=== PATIENT | male | born 1980 | race Caucasian/White ===

== ENCOUNTER → 2019-03-02 | Outpatient (CLI) | payer OTHER ==
[2019-03-02 15:41] LABS: Anisocytosis Slight; Basophils # (A) 0.1 k/uL (0-0.2); Basophils % (A) 0 %; Eosinophils # (A) 0.1 k/uL (0-0.7); Eosinophils % (A) 1 %; HCT 38.4 % (39.0-53.0); HGB 11.1 gm/dL (13.0-17.5); Hypochromasia Marked; Lymphocytes # (A) 2.2 k/uL (1.0-4.8); Lymphocytes % (A) 18 %; MCH 21.5 pg (25.0-35.0); MCHC 28.9 g/dL (31.0-37.0); MCV 74.6 fL (80.0-100.0); Mean Platelet Volume 7.3; Microcytosis Moderate; Monocytes # (A) 0.6 k/uL (0-1.0); Monocytes % (A) 5 %; Neutrophils # (A) 8.9 k/uL (1.3-7.7); Neutrophils % (A) 74 %; Platelet Count 278 k/uL (150-450); RBC 5.15 m/uL (4.30-5.90); RDW 17.4 % (11.5-15.5)
[2019-03-02 23:14] LABS: T4, Free (Free Thyroxine) 1.2 ng/dL (0.80-1.80)
[2019-03-02 23:17] LABS: Albumin 4.1 g/dL (3.80-4.90); Albumin/Globulin Ratio 1.71 (1.60-3.17); Anion Gap 8.4 mmol/L (4.00-12.00); Calcium 8.6 mg/dL (8.7-10.3); Carbon Dioxide 36.6 mmol/L (21.6-31.8); Globulin 2.4 g/dL (1.6-3.3); Potassium 3.7 mmol/L (3.5-5.5); Total Bilirubin 0.2 mg/dL (0.2-1.2); Total Protein 6.5 g/dL (6.2-8.2)
[2019-03-03 00:28] LABS: Hemoglobin A1C 6.3 % (4.0-6.0)
== END | disposition home or self-care (01) ==
LOC: LABWHC1 14:54
PROVIDERS: ATTEND Physician Assistant
DX: Z00.00 Encounter for general adult medical examination without abnormal findings (principal); I10 Essential (primary) hypertension; D50.9 Iron deficiency anemia, unspecified; G47.30 Sleep apnea, unspecified
CPT/HCPCS: 36415; 80053; 83036; 84439; 84443; 84481; 85025

== ENCOUNTER 2019-06-18 14:12 | Emergency (ER) | payer MEDICARE, OTHER ==
[2019-06-18 14:19] VITALS: BP 158/51; PULSE 90; RESP 18; TEMP 98.5
[2019-06-18 15:10] LABS: African American GFR (CKD) >90 (>60 ml/min/1.73 sqM); Blood Urea Nitrogen 16 mg/dL (9-20); Calcium 8.6 mg/dL (8.4-10.2); Carbon Dioxide 39 mmol/L (22-30); Chloride 97 mmol/L (98-107); Glucose 125 mg/dL (74-99)
[2019-06-18 15:11] LABS: Anion Gap 4 mmol/L; Sodium 140 mmol/L (137-145)
[2019-06-18 15:21] LABS: Anisocytosis Slight; Basophils % (A) 0 %; Eosinophils # (A) 0.1 k/uL (0-0.7); Eosinophils % (A) 1 %; HCT 41.5 % (39.0-53.0); Hypochromasia Marked; Lymphocytes # (A) 1.4 k/uL (1.0-4.8); Lymphocytes % (A) 17 %; MCH 22.4 pg (25.0-35.0); MCHC 28.9 g/dL (31.0-37.0); MCV 77.6 fL (80.0-100.0); Mean Platelet Volume 8.4; Microcytosis Slight; Monocytes # (A) 0.4 k/uL (0-1.0); Monocytes % (A) 5 %; Neutrophils % (A) 74 %; Platelet Count 230 k/uL (150-450); Poikilocytosis Slight; RBC 5.35 m/uL (4.30-5.90); RDW 17.4 % (11.5-15.5); WBC 8.2 k/uL (3.8-10.6)
--- NOTE | 2019-06-18 15:32 | ED ---
Skin/Abscess/FB HPI - General Chief complaint: Skin/Abscess/Foreign Body Stated complaint: Cellulitis Time Seen by Provider: 06/18/19 14:22 Source: patient, RN notes reviewed Mode of arrival: ambulatory Limitations: no limitations - History of Present Illness Initial comments: 39-year-old male presents emergency department tingling of lower leg swelling and redness. Patient states that he had reoccurrence flank as he has chronic lymphedema of his lower extremity is. Patient denies any fevers chills he states he just noticed some redness no increase in pain paresthesias. Patient states that he just wants to Infection for gets worse if this is what is going on. Patient denies any trauma no history DVTs. - Related Data Home Medications Medication Instructions Recorded Confirmed Aspirin EC [Ecotrin Low Dose] 81 mg PO DAILY 06/18/19 06/18/19 Furosemide [Lasix] 40 mg PO TID 06/18/19 06/18/19 Spironolactone [Aldactone] 25 mg PO DAILY 06/18/19 06/18/19 Previous Rx's Medication Instructions Recorded Cephalexin [Keflex] 500 mg PO Q6HR #40 cap 06/18/19 Potassium Chloride ER [K-Dur 20] 20 meq PO DAILY #14 tab 06/18/19 Allergies Allergy/AdvReac Type Severity Reaction Status Date / Time phenobarbital Allergy Unknown Verified 06/18/19 14:50 Review of Systems ROS Statement: Those systems with pertinent positive or pertinent negative responses have been documented in the HPI. ROS Other: All systems not noted in ROS Statement are negative. Past Medical History Past Medical History: No Reported History History of Any Multi-Drug Resistant Organisms: None Reported Past Surgical History: No Surgical Hx Reported Past Psychological History: No Psychological Hx Reported Smoking Status: Former smoker Past Alcohol Use History: None Reported Past Drug Use History: Marijuana General Exam Limitations: no limitations General appearance: alert, in no apparent distress Head exam: Present: atraumatic, normocephalic, normal inspection Eye exam: Present: normal appearance, PERRL, EOMI. Absent: scleral icterus, conjunctival injection, periorbital swelling Respiratory exam: Present: normal lung sounds bilaterally. Absent: respiratory distress, wheezes, rales, rhonchi, stridor Cardiovascular Exam: Present: regular rate, normal rhythm, normal heart sounds. Absent: systolic murmur, diastolic murmur, rubs, gallop, clicks Extremities exam: Present: other (Bilateral lower extremity chronic venous stasis changes, scaling of the skin along with erythema there is mild increase in warmth pedal pulses equal bilaterally) Skin exam: Present: warm, dry Course Vital Signs 06/18/19 14:15 Temperature 98.5 F Pulse Rate 90 Respiratory 18 Rate Blood Pressure 158/51 O2 Sat by Pulse 94 L Oximetry Medical Decision Making - Medical Decision Making 39-year-old male presented for leg redness. Patient we treated for cellulitis. Labs unremarkable patient was concerned about his potassium is takes diuretics and ran out of his potassium. Patient will be discharged with antibiotics and potassium return parameters were discussed. - Lab Data Result diagrams: 06/18/19 14:53 06/18/19 14:53 Lab Results 06/18/19 06/18/19 Range/Units 14:53 14:53 WBC 8.2 (3.8-10.6) k/uL RBC 5.35 (4.30-5.90) m/uL Hgb 12.0 L (13.0-17.5) gm/dL Hct 41.5 (39.0-53.0) % MCV 77.6 L (80.0-100.0) fL MCH 22.4 L (25.0-35.0) pg MCHC 28.9 L (31.0-37.0) g/dL RDW 17.4 H (11.5-15.5) % Plt Count 230 (150-450) k/uL Neutrophils % 74 % Lymphocytes % 17 % Monocytes % 5 % Eosinophils % 1 % Basophils % 0 % Neutrophils # 6.0 (1.3-7.7) k/uL Lymphocytes # 1.4 (1.0-4.8) k/uL Monocytes # 0.4 (0-1.0) k/uL Eosinophils # 0.1 (0-0.7) k/uL Basophils # 0.0 (0-0.2) k/uL Hypochromasia Marked Poikilocytosis Slight Anisocytosis Slight Microcytosis Slight Sodium 140 (137-145) mmol/L Potassium 4.0 (3.5-5.1) mmol/L Chloride 97 L (98-107) mmol/L Carbon Dioxide 39 H (22-30) mmol/L Anion Gap 4 mmol/L BUN 16 (9-20) mg/dL Creatinine 0.67 (0.66-1.25) mg/dL Est GFR (CKD-EPI)AfAm >90 (>60 ml/min/1.73 sqM) Est GFR (CKD-EPI)NonAf >90 (>60 ml/min/1.73 sqM) Glucose 125 H (74-99) mg/dL Calcium 8.6 (8.4-10.2) mg/dL Disposition Clinical Impression: Cellulitis, leg Disposition: HOME SELF-CARE Condition: Stable Instructions (If sedation given, give patient instructions): Cellulitis (ED) Additional Instructions: Please return to the Emergency Department if symptoms worsen or any other concerns. Prescriptions: Potassium Chloride ER [K-Dur 20] 20 meq PO DAILY #14 tab Cephalexin [Keflex] 500 mg PO Q6HR #40 cap Is patient prescribed a controlled substance at d/c from ED?: No Referrals: Sia Huffman MD [Primary Care Provider] - 1-2 days Time of Disposition: 15:31
== END 2019-06-18 15:55 | disposition home or self-care (01) ==
LOC: EC 14:12
DX: L03.116 Cellulitis of left lower limb (principal); L03.115 Cellulitis of right lower limb; I89.0 Lymphedema, not elsewhere classified; Z79.82 Long term (current) use of aspirin; Z79.899 Other long term (current) drug therapy; Z88.8 Allergy status to other drugs, medicaments and biological substances; Z87.891 Personal history of nicotine dependence
CPT/HCPCS: 36415; 80048; 85025; 99283

== ENCOUNTER 2019-07-14 13:02 | Inpatient (IN) | payer MEDICARE ==
[2019-07-14] MEDS ORDERED: IPRATROPIUM-ALBUTEROL 3 ML NEB INHALATION STA (13:38)
[2019-07-14 13:57] LABS: Anisocytosis Slight; Basophils # (A) 0.1 k/uL (0-0.2); Basophils % (A) 1 %; Eosinophils # (A) 0.2 k/uL (0-0.7); Eosinophils % (A) 2 %; HCT 41.8 % (39.0-53.0); Hypochromasia Marked; Lymphocytes # (A) 1.6 k/uL (1.0-4.8); Lymphocytes % (A) 18 %; MCH 22.8 pg (25.0-35.0); MCHC 28.7 g/dL (31.0-37.0); MCV 79.5 fL (80.0-100.0); Mean Platelet Volume 7.3; Microcytosis Slight; Monocytes # (A) 0.5 k/uL (0-1.0); Monocytes % (A) 6 %; Neutrophils # (A) 6.8 k/uL (1.3-7.7); Neutrophils % (A) 72 %; Platelet Count 222 k/uL (150-450); RBC 5.25 m/uL (4.30-5.90); RDW 17.5 % (11.5-15.5); WBC 9.4 k/uL (3.8-10.6)
[2019-07-14 14:05] LABS: Partial Thromboplastin Time 22.3 sec (22.0-30.0)
[2019-07-14 14:08] LABS: ALT 22 U/L (21-72); AST 19 U/L (17-59); African American GFR (CKD) >90 (>60 ml/min/1.73 sqM); Albumin 3.5 g/dL (3.5-5.0); Alkaline Phosphatase 72 U/L (38-126); Anion Gap 4 mmol/L; Blood Urea Nitrogen 13 mg/dL (9-20); C Reactive Protein 10.3 mg/L (<10.0); Calcium 8.5 mg/dL (8.4-10.2); Carbon Dioxide 38 mmol/L (22-30); Chloride 99 mmol/L (98-107); Glucose 150 mg/dL (74-99); Non-African American GFR(CKD) >90 (>60 ml/min/1.73 sqM); Potassium 4.4 mmol/L (3.5-5.1); Sodium 141 mmol/L (137-145); Total Bilirubin 0.4 mg/dL (0.2-1.3); Total Protein 7.1 g/dL (6.3-8.2)
--- NOTE | 2019-07-14 14:33 | XR ---
EXAMINATION TYPE: XR chest 2V DATE OF EXAM: 07/14/2019 COMPARISON: 01/09/2016 HISTORY: 29-year-old male with difficulty breathing, shortness of breath TECHNIQUE: AP and lateral views FINDINGS: Heart mildly enlarged. Diffuse interstitial/vascular prominence. No consolidation or pleural effusion . IMPRESSION: Cardiomegaly and interstitial/vascular prominence. Correlate for possible mild CHF with pulmonary vas cular congestion. No kesha pulmonary edema.
--- NOTE | 2019-07-14 14:36 | XR ---
EXAMINATION TYPE: XR ankle complete 3 views LT, XR foot complete 3 views LT DATE OF EXAM: 07/14/2019 COMPARISON: NONE HISTORY: 39-year-old male with a foot and ankle pain and swelling FINDINGS: Left ankle: Marked generalized soft tissue swelling. Ankle mortise is congruent. No acute fracture, subluxation, dislocation. Talar dome is intact. Small delineation to the Achilles tendon. Small plantar calcaneal spur. Left foot: There is a transverse fracture just be the base of the fifth proximal phalanx with slight medial disp lacement and lateral angulation. Prominent soft tissue swelling may relate to patient body habitus. N o additional acute fracture seen. Ocampo's toe. IMPRESSION: 1. Left ankle: Generalized soft tissue swelling may in part relate to patient body habitus. No acute osseous abnormality seen. 2. Left foot: Transverse fracture just beyond the base of the fifth proximal phalanx with slight medi al displacement and lateral angulation. Soft tissue swelling of the foot may in part relate to large body habitus.
[2019-07-14 15:00] LABS: Erythrocyte Sedimentation Rate 13 mm/hr (0-15)
--- NOTE | 2019-07-14 16:01 | ED ---
SOB HPI - General Chief Complaint: Shortness of Breath Stated Complaint: Leg pain Time Seen by Provider: 07/14/19 13:23 Source: patient Mode of arrival: wheelchair Limitations: no limitations - History of Present Illness Initial Comments: The patient is a 39-year-old male who presents emergency Department with reported bilateral lower extremity cellulitis. The patient has a history of chronic venous insufficiency, diabetes and neuropathy. Patient reports that over the past several week he's had increased swelling to his bilateral lower extremities. He began having open weeping ulcers. States he's been previously hospitalized for this. He denies he fevers or chills. He does report that yesterday he accidentally tripped striking his left foot. Reports that he has pain in his left ankle. He has been able to ambulate. Denies a history of DVTs and PEs. The patient arrives and it is noted that he has a low pulse ox. He does admit to associated shortness of breath. The patient is diffusely wheezy upon presentation. Denies to me a history of congestive heart failure. Denies a history of COPD. States that he is unable to lay flat at night. Denies any chest pain. No ripping or tearing sensation to his back. Denies any abdominal pain or changes in bladder habits. There are no other alleviating, precipitating or modifying factors - Related Data Home Medications Medication Instructions Recorded Confirmed No Known Home Medications 07/14/19 07/14/19 Allergies Allergy/AdvReac Type Severity Reaction Status Date / Time phenobarbital Allergy Unknown Verified 07/14/19 14:46 Review of Systems ROS Statement: Those systems with pertinent positive or pertinent negative responses have been documented in the HPI. ROS Other: All systems not noted in ROS Statement are negative. Past Medical History Past Medical History: Diabetes Mellitus, Hyperlipidemia, Hypertension, Sleep Apnea/CPAP/BIPAP Additional Past Medical History / Comment(s): cellulitis History of Any Multi-Drug Resistant Organisms: None Reported Past Surgical History: No Surgical Hx Reported Past Psychological History: No Psychological Hx Reported Smoking Status: Former smoker Past Alcohol Use History: None Reported Past Drug Use History: Marijuana - Past Family History Father Family Medical History: Dementia General Exam Limitations: no limitations General appearance: alert, in no apparent distress Head exam: Present: atraumatic, normocephalic Eye exam: Present: normal appearance, PERRL, EOMI ENT exam: Present: normal exam, normal oropharynx, mucous membranes moist, TM's normal bilaterally Neck exam: Present: normal inspection. Absent: tenderness, meningismus Respiratory exam: Present: wheezes, other (the patient is easily arrousable upon verbal stimulation. he saturates 94% on 4L NC. No signs of respiratory distress. ). Absent: respiratory distress, rales, rhonchi, stridor Cardiovascular Exam: Present: normal rhythm, tachycardia, normal heart sounds GI/Abdominal exam: Present: soft, other (large scaphoid abdomen with cellulitic changes to his pannus. No open weeping ulcers). Absent: tenderness, guarding, rebound, rigid Extremities exam: Present: pedal edema, other (brawny edema bilateral lower extremities. There is weeping ulcers to both legs, right leg worse than right. Patient has tenderness to palpation of the lateral aspect of the left foot and ankle. No ecchymosis noted. patient has full normal range of motion testing. No joint swelling. ) Course Vital Signs 07/14/19 07/14/19 07/14/19 13:04 13:51 13:56 Temperature 98.9 F Pulse Rate 107 H 108 H 99 Respiratory 25 H Rate Blood Pressure 126/69 O2 Sat by Pulse 83 L Oximetry 07/14/19 16:29 Temperature Pulse Rate 92 Respiratory 24 Rate Blood Pressure 130/78 O2 Sat by Pulse 87 L Oximetry Medical Decision Making - Medical Decision Making Upon arrival the patient is placed into room 11. He is hooked up to continuous pulse ox and cardiac monitoring. A 12-lead EKG is performed. Peripheral IV is established. Laboratory studies were conducted. The patient was sent for a chest x-ray as well as an x-ray of his left foot and ankle. I did review the results and they were discussed with the patient. He does have a CO2 of 38 and a CRP of 10. X-ray demonstrates a fifth proximal phalanx fracture. I discussed these results with the patient. He did present with a pulse ox of 83%. He has been on 4 L and has been saturating at 95%. Chest x-ray does demonstrate volume overload. I do hold off on diuresis in the patient because I am concerned for acute cellulitis of his lower extremities. Blood cultures were obtained. I did provide the patient with a dose of Unasyn and Vanco. I recommended hospital admission for which the patient did agree. I did call and discuss the case with the admitting physician. I will place Dr. Cherry on consult. The patient remained in stable condition. He remained easily arousable to verbal stimuli while within the ED. He was transported to the floor in stable condition. - Lab Data Result diagrams: 07/22/19 05:38 07/22/19 05:38 Lab Results 07/14/19 07/14/19 07/14/19 Range/Units 13:35 13:35 13:35 WBC 9.4 (3.8-10.6) k/uL RBC 5.25 (4.30-5.90) m/uL Hgb 12.0 L (13.0-17.5) gm/dL Hct 41.8 (39.0-53.0) % MCV 79.5 L (80.0-100.0) fL MCH 22.8 L (25.0-35.0) pg MCHC 28.7 L (31.0-37.0) g/dL RDW 17.5 H (11.5-15.5) % Plt Count 222 (150-450) k/uL Neutrophils % 72 % Lymphocytes % 18 % Monocytes % 6 % Eosinophils % 2 % Basophils % 1 % Neutrophils # 6.8 (1.3-7.7) k/uL Lymphocytes # 1.6 (1.0-4.8) k/uL Monocytes # 0.5 (0-1.0) k/uL Eosinophils # 0.2 (0-0.7) k/uL Basophils # 0.1 (0-0.2) k/uL Hypochromasia Marked Anisocytosis Slight Microcytosis Slight ESR 13 (0-15) mm/hr PT 11.0 (9.0-12.0) sec INR 1.0 (<1.2) APTT 22.3 (22.0-30.0) sec Sodium 141 (137-145) mmol/L Potassium 4.4 (3.5-5.1) mmol/L Chloride 99 (98-107) mmol/L Carbon Dioxide 38 H (22-30) mmol/L Anion Gap 4 mmol/L BUN 13 (9-20) mg/dL Creatinine 0.60 L (0.66-1.25) mg/dL Est GFR (CKD-EPI)AfAm >90 (>60 ml/min/1.73 sqM) Est GFR (CKD-EPI)NonAf >90 (>60 ml/min/1.73 sqM) Glucose 150 H (74-99) mg/dL Calcium 8.5 (8.4-10.2) mg/dL Total Bilirubin 0.4 (0.2-1.3) mg/dL AST 19 (17-59) U/L ALT 22 (21-72) U/L Alkaline Phosphatase 72 (38-126) U/L Troponin I (0.000-0.034) ng/mL C-Reactive Protein 10.3 H (<10.0) mg/L NT-Pro-B Natriuret Pep pg/mL Total Protein 7.1 (6.3-8.2) g/dL Albumin 3.5 (3.5-5.0) g/dL 07/14/19 07/14/19 Range/Units 13:35 13:35 WBC (3.8-10.6) k/uL RBC (4.30-5.90) m/uL Hgb (13.0-17.5) gm/dL Hct (39.0-53.0) % MCV (80.0-100.0) fL MCH (25.0-35.0) pg MCHC (31.0-37.0) g/dL RDW (11.5-15.5) % Plt Count (150-450) k/uL Neutrophils % % Lymphocytes % % Monocytes % % Eosinophils % % Basophils % % Neutrophils # (1.3-7.7) k/uL Lymphocytes # (1.0-4.8) k/uL Monocytes # (0-1.0) k/uL Eosinophils # (0-0.7) k/uL Basophils # (0-0.2) k/uL Hypochromasia Anisocytosis Microcytosis ESR (0-15) mm/hr PT (9.0-12.0) sec INR (<1.2) APTT (22.0-30.0) sec Sodium (137-145) mmol/L Potassium (3.5-5.1) mmol/L Chloride (98-107) mmol/L Carbon Dioxide (22-30) mmol/L Anion Gap mmol/L BUN (9-20) mg/dL Creatinine (0.66-1.25) mg/dL Est GFR (CKD-EPI)AfAm (>60 ml/min/1.73 sqM) Est GFR (CKD-EPI)NonAf (>60 ml/min/1.73 sqM) Glucose (74-99) mg/dL Calcium (8.4-10.2) mg/dL Total Bilirubin (0.2-1.3) mg/dL AST (17-59) U/L ALT (21-72) U/L Alkaline Phosphatase (38-126) U/L Troponin I <0.012 (0.000-0.034) ng/mL C-Reactive Protein (<10.0) mg/L NT-Pro-B Natriuret Pep 314 pg/mL Total Protein (6.3-8.2) g/dL Albumin (3.5-5.0) g/dL - EKG Data EKG Comments: EKG demonstrates normal sinus rhythm with a ventricular rate 97. HI interval 134. QRS 78. QTC 416. There is a Q wave in lead 3. No acute ST segment elevations or depressions concerning for ischemic changes Disposition Clinical Impression: Congestive heart failure, Closed fracture of phalanx of left fifth toe, Respiratory failure with hypoxia, Bilateral lower leg cellulitis Disposition: ADMITTED IP TO THIS HOSP Condition: Stable Is patient prescribed a controlled substance at d/c from ED?: No Decision to Admit Reason: Admit from EC Decision Date: 07/14/19 Decision Time: 16:17
[2019-07-14] MEDS ORDERED: AMPICILLIN-SULBACTAM 3 GM in SODIUM CHLORIDE 0.9% 100 ML IVPB STA (16:05)
[2019-07-14] MEDS ORDERED: VANCOMYCIN 1,000 MG in SODIUM CHLORIDE 0.9% 250 ML IVPB STA (16:06)
[2019-07-14] MEDS ORDERED: VANCOMYCIN 2,000 MG in SODIUM CHLORIDE 0.9% 500 ML 500 ML IVPB STA (16:09)
[2019-07-14] MEDS ORDERED: NALOXONE 0.4 MG/ML 1 ML VIAL IV PRN (16:11)
[2019-07-14 18:12] LABS: Glucose,Whole Blood 105 mg/dL (75-99)
[2019-07-14] MEDS ORDERED: NAPROXEN 250 MG TAB PO STA (18:54)
[2019-07-14 21:11] LABS: Glucose,Whole Blood 121 mg/dL (75-99)
[2019-07-15 01:07] LABS: Glucose,Whole Blood 119 mg/dL (75-99)
[2019-07-15 06:34] LABS: Glucose,Whole Blood 127 mg/dL (75-99)
[2019-07-15 06:45] LABS: African American GFR (CKD) >90 (>60 ml/min/1.73 sqM); Anion Gap 5 mmol/L; Blood Urea Nitrogen 12 mg/dL (9-20); Calcium 8.3 mg/dL (8.4-10.2); Carbon Dioxide 38 mmol/L (22-30); Chloride 96 mmol/L (98-107); Glucose 113 mg/dL (74-99); Non-African American GFR(CKD) >90 (>60 ml/min/1.73 sqM); Potassium 4.8 mmol/L (3.5-5.1); Sodium 139 mmol/L (137-145)
[2019-07-15 06:55] LABS: Anisocytosis Slight; Basophils % (A) 1 %; Eosinophils # (A) 0.1 k/uL (0-0.7); Eosinophils % (A) 2 %; HCT 43.3 % (39.0-53.0); HGB 12.2 gm/dL (13.0-17.5); Hypochromasia Marked; Lymphocytes # (A) 1.2 k/uL (1.0-4.8); Lymphocytes % (A) 16 %; MCH 22.1 pg (25.0-35.0); MCHC 28.2 g/dL (31.0-37.0); MCV 78.4 fL (80.0-100.0); Mean Platelet Volume 7.2; Microcytosis Slight; Monocytes # (A) 0.5 k/uL (0-1.0); Monocytes % (A) 7 %; Neutrophils # (A) 5.6 k/uL (1.3-7.7); Neutrophils % (A) 73 %; Platelet Count 203 k/uL (150-450); RBC 5.52 m/uL (4.30-5.90); RDW 17.6 % (11.5-15.5); WBC 7.7 k/uL (3.8-10.6)
[2019-07-15] MEDS ORDERED: AMPICILLIN-SULBACTAM 3 GM in SODIUM CHLORIDE 0.9% 100 ML IVPB SCH (12:00)
[2019-07-15 12:22] LABS: Glucose,Whole Blood 154 mg/dL (75-99)
--- NOTE | 2019-07-15 12:37 | XR ---
EXAMINATION TYPE: XR chest 1V portable DATE OF EXAM: 07/15/2019 COMPARISON: Chest radiograph 07/14/2019 HISTORY: Congestive heart failure TECHNIQUE: Single frontal view of the chest is obtained. FINDINGS: Low lung volumes. Stable mild prominence of the cardiac silhouette. Pulmonary vascular congestion and peribronchial cuffing present. No sizable pleural effusion given technique. Osseous structures are g rossly intact. IMPRESSION: Findings consistent with fluid overload, stable.
[2019-07-15] MEDS: FUROSEMIDE 10 MG/ML 4 ML VIAL IV SCH ×3 (12:40→23:17)
[2019-07-15 14:16] LABS: ABG Oxygen Saturation 92.8 % (94-97); ABG PO2 83 mmHg (83-108); Allen Test Performed? Yes
[2019-07-15 14:23] LABS: ABG PCO2 >120 mmHg (35-45); ABG PH 7.13 (7.35-7.45)
[2019-07-15 14:58] LABS: Glucose,Whole Blood 132 mg/dL (75-99)
[2019-07-15 16:04] LABS: ABG Oxygen Saturation 82.4 % (94-97); Allen Test Performed? Yes
[2019-07-15 16:10] LABS: ABG PCO2 >120 mmHg (35-45); ABG PH 7.18 (7.35-7.45); ABG PO2 56 mmHg (83-108)
[2019-07-15] MEDS: IPRATROPIUM-ALBUTEROL 3 ML NEB INHALATION SCH ×2 (16:27→18:29)
[2019-07-15] MEDS: HEPARIN SODIUM,PORCINE 5,000 UNIT/ML 1 ML VIAL SQ SCH ×2 (17:04→23:17)
[2019-07-15] MEDS: VANCOMYCIN 2,500 MG in SODIUM CHLORIDE 0.9% 500 ML 500 ML IVPB SCH ×2 (17:04→23:16)
[2019-07-15] MEDS: PIPERACILLIN-TAZOBACTAM 3.375 GM in SODIUM CHLORIDE 0.9% 100 ML IVPB SCH ×2 (17:05→23:16)
--- NOTE | 2019-07-15 18:14 | HP ---
HISTORY AND PHYSICAL DATE OF SERVICE: 07/15/2019 CHIEF COMPLAINT: Shortness. HISTORY OF PRESENT ILLNESS: This 39-year-old gentleman with a past medical history of multiple medical problems including diabetes, hypertension, hyperlipidemia, sleep apnea, cellulitis, being followed by Dr. Huffman in the outpatient setting. The patient is apparently not very compliant. Patient lives with his father but, however, the father states the patient takes medications sometimes and currently the patient is obtunded and unable to give history. Most of the history take from discussion with staff and also review of the chart. The patient came to the emergency room with bilateral leg pain, cellulitis and as well as shortness of breath. The patient also had injury on the left leg also. The patient was found to have high CO2 with hypercarbic acute hypoxic respiratory failure. BiPAP was applied. The patient is drowsy at this time. There is no history of any fever, rigors. Chest x-ray showed bilateral shadows indicating possibly congestive heart failure acute exacerbation also. PAST MEDICAL HISTORY: History of diabetes, hypertension, hyperlipidemia, sleep apnea, history of cellulitis, history of THC. MEDICATIONS: Unknown. ALLERGIES: PHENOBARBITAL. Family history, social history and review of systems could not be taken at length because of the patient's change in mental status. From the records dementia family history and no history of smoking. PHYSICAL EXAM: Patient is stuporous. Pulse is 90, blood pressure is 141/72, respiration 21, temperature 98.2, pulse ox 94% on 2 L. HEENT: Conjunctivae normal. Oral mucosa moist. NECK: Obese. CARDIOVASCULAR: S1, S2. RESPIRATORY: Diminished breath sounds at the bases. A few scattered rhonchi and crackles. ABDOMEN: Soft, obese. LEGS: Bilateral leg swelling and some evidence of some cellulitis also present. Left foot wound also present, minimal. SKIN: There are some chronic changes of the lymphostasis on both legs. NERVOUS SYSTEM: No focal deficits. JOINTS: No active deforming arthropathy. LABS: WBC 7.7, hemoglobin 12.2, sodium 130, potassium 4.8, glucose noted. ASSESSMENT: 1. Acute hypoxic hypercarbic respiratory failure, multifactorial, possibly secondary to congestive heart failure acute exacerbation as well as obesity hypoventilation pickwickian syndrome, on BiPAP. 2. Change in mental status, metabolic encephalopathy, secondary to above. 3. Bilateral leg cellulitis, acute on chronic. 4. Chronic anemia of chronic disease. 5. Transverse fracture beyond the base of the fifth proximal phalanx with slight medial displacement. 6. Super morbid obesity with BMI of 56.7. 7. Diabetes mellitus type 2. 8. Hypertension. 9. Hyperlipidemia. 10.History of sleep apnea. 11.History of cellulitis. 12.Remote history of nicotine dependence. 13.History of THC. RECOMMENDATIONS AND DISCUSSION: This 39-year-old gentleman who presented with multiple complex medical issues, we will monitor the patient closely, continue the current management, continue symptomatic treatment. Will initiate broad-spectrum IV antibiotics. Otherwise, intravenous Lasix. Cardiology and pulmonary consultation. Continue with BiPAP. DVT prophylaxis. Overall prognosis extremely guarded because of multiple complex medical issues. Discussed with the family at length. Importance of compliance was stressed with the family. Will get orthopedic evaluation also. JERRI / MARISA: [id number] /
[2019-07-15 18:17] LABS: Glucose,Whole Blood 122 mg/dL (75-99)
[2019-07-15 18:18] LABS: ABG Oxygen Saturation 92.9 % (94-97); ABG PO2 77 mmHg (83-108); Allen Test Performed? Yes
[2019-07-15 18:24] LABS: ABG PCO2 >120 mmHg (35-45); ABG PH 7.19 (7.35-7.45)
[2019-07-15] MEDS ORDERED: LABETALOL 5 MG/ML VIAL MDV IVP STA (21:28)
[2019-07-15] MEDS: NYSTATIN 100,000 UNIT/GM POWD 15 GM TOPICAL SCH (21:52)
[2019-07-15 23:28] LABS: Glucose,Whole Blood 126 mg/dL (75-99)
--- NOTE | 2019-07-16 01:16 | CONS ---
CONSULTATION PULMONARY/CRITICAL CARE CONSULTATION: DATE OF SERVICE: 07/15/2019. This is a 39-year-old obese male who apparently presents to the emergency department with complaints of lower extremity edema and cellulitis. The patient apparently has a history of diabetes and neuropathy. He was admitted to the floor. I was called today because apparently he was very lethargic and sleepy. The patient was then transferred down to the ICU after one of our ICU nurses went up there and did an "A" team rapid response team on the patient. The patient was transferred down to the ICU. He was on BiPAP at 16 and 6 and 50%. His saturations are 98%. I asked them to turn the FiO2 down to 30-35 percent and accept saturations between 88 and 90%. This was based on the blood gases that they told me about. The patient is not receiving any IV fluids. He was admitted on July 14. Home medications are apparently not known. I will have to check this summary if nothing is listed there in terms of home medications either. ALLERGIES: Apparently include PHENOBARBITAL. MEDICAL HISTORY: Diabetes mellitus, hyperlipidemia, hypertension, sleep apnea syndrome, possibly the patient is on CPAP or BiPAP. He also has a history of cellulitis and chronic lower extremity edema. The patient likely also suffers from obesity/hypoventilation syndrome or Pickwickian syndrome. SURGICAL HISTORY: Surgical history is not reported. Apparently he has had no surgeries in the past. SOCIAL HISTORY: Apparently positive for previous tobacco use. He also apparently smokes marijuana. There was no admission of any alcohol use. FAMILY HISTORY: Positive for a father with dementia. REVIEW OF SYSTEMS: Cannot really be obtained at this time. The patient is very lethargic and sleepy on the BiPAP. This is because the CO2 was quite high. The only review of systems I can report to is the fact that when he came into the emergency room, he was complaining of significant lower extremity edema, cellulitis and weeping from his lower extremities. Vital signs are reviewed. Temperature is 98.2, heart rate is 100, respiratory rate is about 18-20 breaths per minute, blood pressure 130/68, and saturations are 92%. Appears mildly tachypneic and dyspneic. BiPAP mask in place. HEENT examination is grossly unremarkable. NECK: Supple. Full range of motion. No adenopathy, thyromegaly or neck vein distention. CARDIOVASCULAR examination reveals irregular rhythm and rate. Heart rate about 100 beats per minute. No clear-cut murmur noted. Heart sounds are distant. LUNGS: Some bibasilar crackles. There are a few scattered rhonchi. No wheezes. Breath sounds equal bilaterally. ABDOMEN: Obese. Bowel sounds are heard. EXTREMITIES reveal significant edema and weeping of the skin. There is also some chronic venous stasis changes and hyperpigmentation. There is diffuse erythema of both lower extremities. Skin exam as above. NEUROLOGIC examination is difficult to assess. He does move all 4 extremities. He does respond appropriately. He is lethargic though. LABS: Reviewed. White count 7.7, hemoglobin 12.2, hematocrit 43.3, platelet count 203,000. PT/INR PTT all normal. Blood gases show a pO2 of 83, PaCO2 of greater than 120 and a pH of 7.13. His sodium is 139, potassium 4.8, chloride 96, CO2 is 38, anion gap 5. BUN and creatinine were 12 and 0.65. Based on the bicarbonate concentration of 38, his baseline PaCO2 should be about 65 +/- 2 mmHg. Obviously it is much higher now. His N- terminal proBNP was 314 and 278. C-reactive protein was 10.3. Chest x-ray shows evidence of fluid overload. He did get some Lasix IV. Left ankle and foot x-rays were done. The left ankle x-ray shows generalized soft tissue swelling. The left foot x-ray shows transverse fracture just beyond the base of the 5th proximal phalanx with slight medial displacement and lateral angulation. Medications include Tylenol, Lasix IV, heparin subcu, updrafts with DuoNeb, Narcan, Protonix, Zosyn and vancomycin. ASSESSMENT: 1. Cellulitis of the lower extremities, currently on broad-spectrum antibiotic therapy. 2. Profound obesity with possible Pickwickian syndrome. 3. History of sleep apnea syndrome. 4. Hypertension. 5. Hyperlipidemia. 6. Diabetes mellitus. 7. Acute on chronic hypercapnic respiratory failure, likely related to excessive administration of oxygen therapy. 8. Previous history of tobacco use. 9. Left foot fracture. 10.Hypoxemic respiratory failure secondary to fluid overload. PLAN: The patient was given IV diuretics. He is not receiving any IV fluids. We will turn the FiO2 down from 50 to 35%. I told the respiratory therapist to maintain saturations 88-90 percent. We might be able to titrate down the FiO2 further. He is on appropriate antibiotics. Additional recommendations and suggestions are forthcoming. Prognosis is guarded. MMODL / IJN: [id number] /
[2019-07-16 04:44] LABS: Anisocytosis Slight; Basophils # (A) 0.1 k/uL (0-0.2); Basophils % (A) 1 %; Eosinophils # (A) 0.2 k/uL (0-0.7); Eosinophils % (A) 2 %; HCT 43.4 % (39.0-53.0); Hypochromasia Marked; Lymphocytes # (A) 0.6 k/uL (1.0-4.8); Lymphocytes % (A) 5 %; MCHC 27.7 g/dL (31.0-37.0); MCV 79.2 fL (80.0-100.0); Mean Platelet Volume 8.4; Microcytosis Slight; Monocytes # (A) 0.7 k/uL (0-1.0); Monocytes % (A) 6 %; Neutrophils # (A) 9.1 k/uL (1.3-7.7); Neutrophils % (A) 86 %; Platelet Count 208 k/uL (150-450); RBC 5.48 m/uL (4.30-5.90); RDW 17.7 % (11.5-15.5); WBC 10.6 k/uL (3.8-10.6)
[2019-07-16 04:51] LABS: African American GFR (CKD) >90 (>60 ml/min/1.73 sqM); Blood Urea Nitrogen 9 mg/dL (9-20); Chloride 91 mmol/L (98-107); Glucose 131 mg/dL (74-99); Non-African American GFR(CKD) >90 (>60 ml/min/1.73 sqM); Potassium 4.6 mmol/L (3.5-5.1); Sodium 139 mmol/L (137-145)
[2019-07-16 04:55] LABS: ABG PH 7.23 (7.35-7.45); Allen Test Performed? Yes
[2019-07-16 04:56] LABS: ABG Base Excess 19.8 mmol/L; ABG HCO3 47 mmol/L (21-25); ABG Oxygen Saturation 94.1 % (94-97); ABG PCO2 112 mmHg (35-45); ABG PO2 77 mmHg (83-108); ABG TCO2 51 mmol/L (19-24)
[2019-07-16 04:57] LABS: Anion Gap 4 mmol/L
[2019-07-16 05:22] LABS: Carbon Dioxide 44 mmol/L (22-30)
[2019-07-16 05:39] LABS: Glucose,Whole Blood 137 mg/dL (75-99)
[2019-07-16] MEDS: IPRATROPIUM-ALBUTEROL 3 ML NEB INHALATION SCH ×3 (07:12→19:07)
--- NOTE | 2019-07-16 07:19 | XR ---
EXAMINATION TYPE: XR chest 1V portable DATE OF EXAM: 07/16/2019 COMPARISON: 07/15/2019 HISTORY: Shortness of breath TECHNIQUE: Single frontal view of the chest is obtained. FINDINGS: Slight right hemidiaphragm elevation is redemonstrated. There is diffuse pulmonary vascula r congestion and peribronchial cuffing. The costophrenic angles are not included on the images and ca nnot be evaluated. Cardia mediastinal silhouette is again mildly enlarged. Osseous structures are amber ssly intact. IMPRESSION: Similar-appearing pulmonary vascular congestion and enlarged cardiomediastinal silhouett e of cardiogenic or less likely noncardiogenic fluid overload.
[2019-07-16] MEDS ORDERED: PANTOPRAZOLE 40 MG TABLET PO SCH (07:30)
[2019-07-16] MEDS: HEPARIN SODIUM,PORCINE 5,000 UNIT/ML 1 ML VIAL SQ SCH ×2 (08:19→16:16)
[2019-07-16] MEDS: FUROSEMIDE 10 MG/ML 4 ML VIAL IV SCH (08:19)
[2019-07-16] MEDS: VANCOMYCIN 2,500 MG in SODIUM CHLORIDE 0.9% 500 ML 500 ML IVPB SCH ×2 (08:19→16:15)
[2019-07-16] MEDS: PIPERACILLIN-TAZOBACTAM 3.375 GM in SODIUM CHLORIDE 0.9% 100 ML IVPB SCH (08:19)
[2019-07-16] MEDS: NYSTATIN 100,000 UNIT/GM POWD 15 GM TOPICAL SCH (08:20)
--- NOTE | 2019-07-16 08:40 | P.CONS ---
History of Present Illness - Reason for Consult Consult date: 07/15/19 Bilateral lower extremity cellulitis Requesting physician: Eduardo Gao - Chief Complaint Bilateral leg swelling redness and left ankle pain x few days - History of Present Illness Patient is a 39-year-old male with morbid obesity and chronic swelling in his lower extremity has been brought into the ER with chief complaints of increasing swelling to his legs that has been getting worse for the last few days and also having some redness to the legs and weeping edema patient also tripped and hurt his left angle yesterday and was complaining of pain to his lef t ankle area to the ER physician patient was evaluated by the ER physician did have x-rays of the ankle did not show any fracture as well as x-rays of the left foot with did shows a transverse fracture of the left fifth toe the patient was diagnosed with bilateral Synvisc colitis in this patient with no fever or elevated white count and was started on Unasyn the patient subsequently become lethargic and was noticed to have CO2 retention with a pCO2 120 subsequent the patient has been transferred out of the ICU and was currently on a BiPAP and was unable to provide any history so most information was obtained from review the chart and talking to the father patient benefit has been brought into vancomycin and Zosyn pending ID evaluation Review of Systems Positive points has been mentioned in HPI complete review could not be obtained because of the patient mental status Past Medical History Past Medical History: Diabetes Mellitus, Hyperlipidemia, Hypertension, Sleep Apnea/CPAP/BIPAP Additional Past Medical History / Comment(s): cellulitis History of Any Multi-Drug Resistant Organisms: None Reported Past Surgical History: No Surgical Hx Reported Past Anesthesia/Blood Transfusion Reactions: No Reported Reaction Past Psychological History: No Psychological Hx Reported Smoking Status: Former smoker Past Alcohol Use History: None Reported Past Drug Use History: Marijuana - Past Family History Father Family Medical History: Dementia Medications and Allergies Home Medications Medication Instructions Recorded Confirmed Type No Known Home Medications 07/14/19 07/14/19 History Allergies Allergy/AdvReac Type Severity Reaction Status Date / Time phenobarbital Allergy Unknown Verified 07/14/19 14:46 Physical Exam Vitals: Vital Signs Temp Pulse Pulse Resp BP BP Pulse Ox 07/15/19 13:40 112 H 07/15/19 13:30 106 H 07/15/19 12:00 98.2 F 91 12 130/68 92 L 07/15/19 08:00 97.1 F L 101 H 12 176/79 91 L 07/15/19 03:49 98.6 F 90 21 141/72 94 L 07/15/19 03:47 94 20 07/15/19 00:00 98.2 F 94 20 135/65 96 07/14/19 20:00 98.4 F 90 20 132/60 92 L 07/14/19 18:00 96.7 F L 96 26 H 134/71 95 07/14/19 16:29 92 24 130/78 87 L Intake and Output 07/14/19 07/15/19 07/15/19 22:59 06:59 14:59 Intake Total 240 500 340 Balance 240 500 340 Intake: Intake, IV Titration 500 100 Amount Ampicillin-Sulbactam 3 gm 100 In Sodium Chloride 0.9% 100 ml @ 200 mls/hr IVPB Q6HR [facility] Rx#:[id number] Vancomycin 2,000 mg In 500 Sodium Chloride 0.9% 500 ml 500 ml @ 167 mls/hr IVPB ONCE STA Rx#: [id number] Oral 240 240 Other: Voiding Method Toilet Toilet # Voids 1 2 # Bowel Movements 1 1 GENERAL DESCRIPTION: Middle-aged male lying in bed, no distress. No tachypnea or accessory muscle of respiration use. HEENT: Shows Pallor , no scleral icterus. Oral mucous membrane is dry. No pharyngeal erythema or thrush NECK: Trachea central, no thyromegaly. LUNGS: Unlabored breathing. Decreased breath sound at the base No wheeze or crackle. HEART: S1, S2, regular rate and rhythm. No loud murmur ABDOMEN: Soft, no tenderness , guarding or rigidity, no organomegaly EXTREMITIES: Diffuse swelling bilateral lower extremity with minimal redness slightly warm to touch patient left fifth toe is currently in stable with a wound at the base but no purulent drainage SKIN: No rash, no masses palpable. NEUROLOGICAL: The patient is lethargic on the BiPAP orientation mood and affect could not be determined Results CBC & Chem 7: 07/16/19 04:24 07/16/19 04:24 Labs: Abnormal Lab Results - Last 24 Hours (Table) 07/14/19 07/14/19 07/15/19 Range/Units 18:00 21:09 01:05 Hgb (13.0-17.5) gm/dL MCV (80.0-100.0) fL MCH (25.0-35.0) pg MCHC (31.0-37.0) g/dL RDW (11.5-15.5) % Chloride (98-107) mmol/L Carbon Dioxide (22-30) mmol/L Creatinine (0.66-1.25) mg/dL Glucose (74-99) mg/dL POC Glucose (mg/dL) 105 H 121 H 119 H (75-99) mg/dL Calcium (8.4-10.2) mg/dL 07/15/19 07/15/19 07/15/19 Range/Units 06:06 06:06 06:32 Hgb 12.2 L (13.0-17.5) gm/dL MCV 78.4 L (80.0-100.0) fL MCH 22.1 L (25.0-35.0) pg MCHC 28.2 L (31.0-37.0) g/dL RDW 17.6 H (11.5-15.5) % Chloride 96 L (98-107) mmol/L Carbon Dioxide 38 H (22-30) mmol/L Creatinine 0.65 L (0.66-1.25) mg/dL Glucose 113 H (74-99) mg/dL POC Glucose (mg/dL) 127 H (75-99) mg/dL Calcium 8.3 L (8.4-10.2) mg/dL 07/15/19 Range/Units 12:02 Hgb (13.0-17.5) gm/dL MCV (80.0-100.0) fL MCH (25.0-35.0) pg MCHC (31.0-37.0) g/dL RDW (11.5-15.5) % Chloride (98-107) mmol/L Carbon Dioxide (22-30) mmol/L Creatinine (0.66-1.25) mg/dL Glucose (74-99) mg/dL POC Glucose (mg/dL) 154 H (75-99) mg/dL Calcium (8.4-10.2) mg/dL Assessment and Plan Assessment: 1-patient with bilateral lower extremity cellulitis in this patient with diffuse swelling redness likely streptococcal disease clinically doubt MRSA or gram- negative infection in this patient who did have a traumatic wound to his left fifth toe with a fracture at the base, for which orthopedic has been consulted now with worsening respiratory symptoms more like this into underlying CO2 retention with the x-rays not showing significant consolidation (1) Athlete's foot on left Current Visit: Yes Status: Acute Code(s): B35.3 - TINEA PEDIS SNOMED Code(s): 1248059 (2) Bilateral lower leg cellulitis Current Visit: Yes Status: Acute Code(s): L03.116 - CELLULITIS OF LEFT LOWER LIMB; L03.115 - CELLULITIS OF RIGHT LOWER LIMB SNOMED Code(s): 604498400 (3) Closed fracture of phalanx of left fifth toe Current Visit: Yes Status: Acute Code(s): S92.502A - DISPLACED UNSP FRACTURE OF LEFT LESSER TOE(S), INIT SNOMED Code(s): 68049005 Plan: 1--vancomycin pharmacy to dose target trough of 15 while watching her kidney function and Vanco trough closely 2-discontinue the Zosyn and add cefepime 2 g every 12 3-nystatin powder in between the toes 4- support to the left fifth toe till the patient is evaluated by orthopedics we will follow on clinical condition and culture to further adjust medication if needed Thank you for this consultation will follow this patient along with you Time with Patient: Greater than 30
--- NOTE | 2019-07-16 08:57 | PN ---
PROGRESS NOTE DATE OF SERVICE: 07/16/2019 Critical care time 33 minutes. This is a 39-year-old obese white male who presents to the emergency department with complaints of lower extremity edema and cellulitis. The patient apparently has a history of diabetes and neuropathy, but was not a particularly good historian. He was initially admitted to the floor. I was called by the nurse because the patient was found to be very lethargic and sleepy. There was an actual "A" team called. Because of the patient's lethargy, and poor responsiveness, the patient was transferred down to the ICU. His initial blood gases showed a significant hypercapnic respiratory failure. Part of the problem is that he was receiving excessive oxygen therapy. Anyway, we transferred him down to the ICU and placed him on BiPAP. Initially his settings were IPAP of 16, EPAP of 6 with FiO2 of 50%. We then weaned down the FiO2 to about 35%. We were able to sort of set at 40% for most of the night. We did increase the IPAP from 16-20. His most recent blood gases are improved. PO2 is 77 pCO2 is finally down below 120 at 112 and his pH is up to 7.234. He is much more awake and alert. His IV is saline at 10 mL an hour. The patient has been pulling at his mask. I did tell the nurse that it was okay to try Venturi mask high-flow O2 or AIRVO, but we needed to make sure that we maintain his saturations in the 88-90 percent range. We do not know much about this patient but apparently in addition to obesity, he has a history of diabetes mellitus, hyperlipidemia, hypertension, sleep apnea syndrome and also likely has Pickwickian syndrome. In addition, he suffers from chronic lower extremity edema, cellulitis and chronic venous stasis changes. PHYSICAL EXAMINATION: VITAL SIGNS: Current vital signs are reviewed. Temperature 97.8, heart rate 96, respiratory rate 18, blood pressure 141/88, mean 105 saturations right around 92-94%. Appears in no acute distress. Much more awake and alert. He does respond. HEENT examination is grossly unremarkable. BiPAP mask in place. NECK: Supple. Full range of motion. No adenopathy or thyromegaly. CARDIOVASCULAR examination reveals regular rhythm rate. Heart sounds are distant. Heart rate about 95 beats per minute. S1, S2 normal. LUNGS: Some coarse rhonchi. No wheezes. There are a few scattered crackles. Breath sounds are diminished throughout. ABDOMEN: Obese. Bowel sounds are heard. EXTREMITIES reveal significant edema and cellulitis and erythema of the lower extremities. There is some chronic venous stasis changes and pitting. SKIN otherwise is not abnormal. NEUROLOGIC examination is difficult to assess because of his lethargy. LABS: Reviewed. White count 10.6, hemoglobin 12, hematocrit 43.4, platelet count 208,000. Blood gases show pO2 of 77, pCO2 of 112, pH 7.23 up from 7.19. Sodium, potassium normal. Chloride 91 CO2 of 44. BUN and creatinine were 9 and 0.56. A chest x-ray today shows diffuse fluid overload. I believe his chest x-ray looks a bit better today to me than yesterday. Medications are reviewed. In addition to what was mentioned, he is getting Tylenol, Lasix, subcu heparin, DuoNeb, labetalol, Narcan, nystatin, Protonix, Zosyn and vancomycin. Thus far microbiology is negative. ASSESSMENT: 1. Acute hypoxemic and hypercapnic respiratory failure in a patient with probable sleep apnea syndrome as well as Pickwickian syndrome and possible underlying chronic lung disease such as chronic obstructive pulmonary disease. 2. Cellulitis of the lower extremities. 3. Profound obesity with possible Pickwickian syndrome. 4. History of sleep apnea syndrome. 5. Benign essential hypertension. 6. Hyperlipidemia. 7. Diabetes mellitus. 8. Previous history of tobacco use. 9. History of left foot fracture. PLAN: Overall, the patient is moving slowly in the right direction. We DC all sedatives, hypnotics, tranquilizers and narcotics. We will continue to use BiPAP therapy at 20 and 6. His pH is coming up and his pCO2 is coming down, which is what we want. Again, I told the nurses that it is very important in this patient to maintain saturations right around 90%. Anything greater than 85% is okay and I prefer it to be less than 92%. We will continue to follow. Prognosis is guarded. Medications are reviewed. Critical care time 33 minutes. MMODL / IJN: [id number] /
[2019-07-16] MEDS ORDERED: FUROSEMIDE 10 MG/ML 10 ML VIAL IV STA (09:44)
[2019-07-16 09:47] LABS: ABG Base Excess 22.7 mmol/L; ABG Oxygen Saturation 90.4 % (94-97); ABG PH 7.24 (7.35-7.45); ABG PO2 65 mmHg (83-108); ABG TCO2 54 mmol/L (19-24); Allen Test Performed? Yes
[2019-07-16 09:50] LABS: ABG PCO2 118 mmHg (35-45)
[2019-07-16 09:51] LABS: ABG HCO3 50 mmol/L (21-25)
--- NOTE | 2019-07-16 10:13 | P.CNOR ---
History of Present Illness - [facility] Consult date: 07/16/19 Consult reason: fracture (Left little toe fracture) History of present illness: This is a 39-year-old gentleman and curettes straight failure admitted to the intensive care unit. He apparently had a fall prior to his admission and had complained of left foot pain. X-rays of the left foot and ankle reveal a frac ture to the proximal phalanx of the fifth toe. We are consulted for orthopedic evaluation. Past Medical History Past Medical History: Diabetes Mellitus, Hyperlipidemia, Hypertension, Sleep Apnea/CPAP/BIPAP Additional Past Medical History / Comment(s): cellulitis History of Any Multi-Drug Resistant Organisms: None Reported Past Surgical History: No Surgical Hx Reported Past Anesthesia/Blood Transfusion Reactions: No Reported Reaction Past Psychological History: No Psychological Hx Reported Smoking Status: Former smoker Past Alcohol Use History: None Reported Past Drug Use History: Marijuana - Past Family History Father Family Medical History: Dementia Medications and Allergies Home Medications Medication Instructions Recorded Confirmed Type No Known Home Medications 07/14/19 07/14/19 History Allergies Allergy/AdvReac Type Severity Reaction Status Date / Time phenobarbital Allergy Unknown Verified 07/14/19 14:46 Physical Examination This is a 39-year-old obese male in the intensive care unit on BiPAP. He does not awaken for the exam. Exam of the lower extremities reveals swelling to the left foot. There is a pain response with palpation of the fifth toe. No obvious pain response to palpation to the remaining areas of the foot or ankle. Capillary refill is less than 3 seconds. Results X-rays of the left foot and ankle reveal a transverse fracture at the base of the proximal phalanx fifth toe. No other fractures identified. - Labs Labs: Abnormal Lab Results - Last 24 Hours (Table) 07/15/19 07/15/19 07/15/19 Range/Units 12:02 14:10 14:56 Hgb (13.0-17.5) gm/dL MCV (80.0-100.0) fL MCH (25.0-35.0) pg MCHC (31.0-37.0) g/dL RDW (11.5-15.5) % Neutrophils # (1.3-7.7) k/uL Lymphocytes # (1.0-4.8) k/uL ABG pH 7.13 L* (7.35-7.45) ABG pCO2 >120 H* (35-45) mmHg ABG pO2 (83-108) mmHg ABG HCO3 (21-25) mmol/L ABG Total CO2 (19-24) mmol/L ABG O2 Saturation 92.8 L (94-97) % Chloride (98-107) mmol/L Carbon Dioxide (22-30) mmol/L Creatinine (0.66-1.25) mg/dL Glucose (74-99) mg/dL POC Glucose (mg/dL) 154 H 132 H (75-99) mg/dL Calcium (8.4-10.2) mg/dL 07/15/19 07/15/19 07/15/19 Range/Units 16:02 18:15 18:16 Hgb (13.0-17.5) gm/dL MCV (80.0-100.0) fL MCH (25.0-35.0) pg MCHC (31.0-37.0) g/dL RDW (11.5-15.5) % Neutrophils # (1.3-7.7) k/uL Lymphocytes # (1.0-4.8) k/uL ABG pH 7.18 L* 7.19 L* (7.35-7.45) ABG pCO2 >120 H* >120 H* (35-45) mmHg ABG pO2 56 L* 77 L (83-108) mmHg ABG HCO3 (21-25) mmol/L ABG Total CO2 (19-24) mmol/L ABG O2 Saturation 82.4 L 92.9 L (94-97) % Chloride (98-107) mmol/L Carbon Dioxide (22-30) mmol/L Creatinine (0.66-1.25) mg/dL Glucose (74-99) mg/dL POC Glucose (mg/dL) 122 H (75-99) mg/dL Calcium (8.4-10.2) mg/dL 07/15/19 07/16/19 07/16/19 Range/Units 23:26 04:24 04:24 Hgb 12.0 L (13.0-17.5) gm/dL MCV 79.2 L (80.0-100.0) fL MCH 22.0 L (25.0-35.0) pg MCHC 27.7 L (31.0-37.0) g/dL RDW 17.7 H (11.5-15.5) % Neutrophils # 9.1 H (1.3-7.7) k/uL Lymphocytes # 0.6 L (1.0-4.8) k/uL ABG pH (7.35-7.45) ABG pCO2 (35-45) mmHg ABG pO2 (83-108) mmHg ABG HCO3 (21-25) mmol/L ABG Total CO2 (19-24) mmol/L ABG O2 Saturation (94-97) % Chloride 91 L (98-107) mmol/L Carbon Dioxide 44 H* (22-30) mmol/L Creatinine 0.56 L (0.66-1.25) mg/dL Glucose 131 H (74-99) mg/dL POC Glucose (mg/dL) 126 H (75-99) mg/dL Calcium 8.0 L (8.4-10.2) mg/dL 07/16/19 07/16/19 07/16/19 Range/Units 04:50 05:38 09:22 Hgb (13.0-17.5) gm/dL MCV (80.0-100.0) fL MCH (25.0-35.0) pg MCHC (31.0-37.0) g/dL RDW (11.5-15.5) % Neutrophils # (1.3-7.7) k/uL Lymphocytes # (1.0-4.8) k/uL ABG pH 7.23 L 7.24 L (7.35-7.45) ABG pCO2 112 H* 118 H* (35-45) mmHg ABG pO2 77 L 65 L (83-108) mmHg ABG HCO3 47 H* 50 H* (21-25) mmol/L ABG Total CO2 51 H 54 H (19-24) mmol/L ABG O2 Saturation 90.4 L (94-97) % Chloride (98-107) mmol/L Carbon Dioxide (22-30) mmol/L Creatinine (0.66-1.25) mg/dL Glucose (74-99) mg/dL POC Glucose (mg/dL) 137 H (75-99) mg/dL Calcium (8.4-10.2) mg/dL Microbiology - Last 24 Hours (Table) 07/14/19 13:35 Blood Culture - Preliminary Blood No Growth after 24 hours H & H 07/14/19 07/15/19 07/16/19 Range/Units 13:35 06:06 04:24 Hgb 12.0 L 12.2 L 12.0 L (13.0-17.5) gm/dL Hct 41.8 43.3 43.4 (39.0-53.0) % Coagulation 07/14/19 Range/Units 13:35 INR 1.0 (<1.2) Result Diagrams: 07/16/19 04:24 07/16/19 04:24 Assessment and Plan (1) Bilateral lower leg cellulitis Current Visit: Yes Status: Acute Code(s): L03.116 - CELLULITIS OF LEFT LOWER LIMB; L03.115 - CELLULITIS OF RIGHT LOWER LIMB SNOMED Code(s): 235125566 (2) Closed fracture of phalanx of left fifth toe Current Visit: Yes Status: Acute Code(s): S92.502A - DISPLACED UNSP FRACTURE OF LEFT LESSER TOE(S), INIT SNOMED Code(s): 81219336 (3) Respiratory failure with hypoxia Current Visit: Yes Status: Acute Code(s): J96.91 - RESPIRATORY FAILURE, UNSPECIFIED WITH HYPOXIA SNOMED Code(s): 67612176629784922 Plan: The clinical and x-ray findings are discussed with the patient's nurse. I have edmundo taped the fifth toe to the fourth toe. No other treatment needed at this point. When he does become ambulatory he may bear weight as tolerated to the left foot. If he is painful at that time I would recommend a postoperative rigid sole shoe. He may follow up with orthopedics as needed.
[2019-07-16] MEDS: CEFEPIME 2 GM in SODIUM CHLORIDE 0.9% 100 ML IVPB SCH (10:15)
[2019-07-16] MEDS: FUROSEMIDE 100 MG in SODIUM CHLORIDE 0.9% 90 ML IV SCH (10:16)
[2019-07-16 13:36] LABS: Glucose,Whole Blood 132 mg/dL (75-99)
--- NOTE | 2019-07-16 13:36 | ECHOF ---
Referral Reason:chf MEASUREMENTS -------- HEIGHT: 182.9 cm WEIGHT: 208.7 kg BP: 137/123 IVSd: 1.3 cm (0.6 - 1.1) LVIDd: 4.9 cm (3.9 - 5.3) LVPWd: 1.8 cm (0.6 - 1.1) IVSs: 1.6 cm LVIDs: 3.5 cm LVPWs: 2.4 cm Ao Diam: 3.3 cm (2.0 - 3.7) AV Cusp: 1.6 cm (1.5 - 2.6) LA Diam: 4.5 cm (2.7 - 3.8) MV E Michel: 0.32 m/s MV DecT: 184 ms MV A Michel: 0.21 m/s MV E/A Ratio: 1.51 FINDINGS -------- Sinus rhythm. Morbid Obesity The left ventricular size is normal. There is mild concentric left ventricular hypertrophy. Overa ll left ventricular systolic function is normal with, an EF between 55 - 60 %. The left atrial size is normal. The right atrial size is normal. 5.0mg OF Lumason UTLIZED: 2 OR MORE WALL SEGMENTS NOT VISUALIZED. The aortic valve was not well visualized. The mitral valve was not well visualized. The tricuspid valve was not well visualized. The pulmonic valve was not well visualized. The aortic root size is normal. There is no pericardial effusion. CONCLUSIONS -------- 1. Sinus rhythm. 2. Morbid Obesity 3. The left ventricular size is normal. 4. There is mild concentric left ventricular hypertrophy. 5. Overall left ventricular systolic function is normal with, an EF between 55 - 60 %. 6. The left atrial size is normal. 7. The right atrial size is normal. 8. 5.0mg OF Lumason UTLIZED: 2 OR MORE WALL SEGMENTS NOT VISUALIZED. 9. The aortic valve was not well visualized. 10. The mitral valve was not well visualized. 11. The tricuspid valve was not well visualized. 12. The pulmonic valve was not well visualized. 13. The aortic root size is normal. 14. There is no pericardial effusion. TELLERS SUPERVISOR: Esperanza West RDCS
--- NOTE | 2019-07-16 16:26 | PN ---
PROGRESS NOTE DATE OF SERVICE: 07/16/2019 This 39-year-old gentleman was admitted with acute respiratory failure secondary to acute Pickwickian syndrome and possible congestive heart failure acute exacerbation, being followed by Dr. Huffman in the outpatient setting. The patient lives with his father but basically noncompliant with medications. Patient is currently on Lasix drip, diuresing well. Multiple consultants following the patient closely. A 2D echo with Doppler was done per Cardiology recommendations which showed ejection fraction about 50-60 percent. Currently patient is on BiPAP. The patient is drowsy, unable to give a coherent history. PAST MEDICAL HISTORY: Reviewed. REVIEW OF SYSTEMS: Could not be taken because of above mentioned reasons. CURRENT MEDICATIONS: 1. Tylenol p.r.n. 2. DuoNeb q.i.d. and p.r.n. 3. Cefepime 2 g IV b.i.d. 4. Lasix drip that is 10 mg/hour. 5. Heparin 5 subcu q.8h. 6. Vancomycin IV. 7. Protonix IV daily. PHYSICAL EXAM: Patient is drowsy. The pulse is 80, blood pressure is 160/93, respiration 21, temperature 97.9, pulse ox 94% on BiPAP. BiPAP settings are noted. HEENT: Conjunctivae normal. Oral mucosa moist. NECK: No jugular venous distention. No lymph node enlargement. CARDIOVASCULAR: S1, S2. RESPIRATORY: Diminished breath sounds at the bases. Scattered rhonchi, no crackles. ABDOMEN: Soft, nontender. LEGS: Bilateral leg cellulitis. NERVOUS SYSTEM: No focal deficits. LABS: WBC 10.2, hemoglobin 12 and ABG showed pH of 7.24, pCO2 was 118. Accu-Cheks noted. ASSESSMENT: 1. Acute hypoxic hypercarbic respiratory failure, multifactorial, possibly secondary to congestive heart failure acute exacerbation as well with acute on chronic diastolic dysfunction, ejection fraction 55-60% as well as obesity hypoventilation syndrome, Pickwickian syndrome, on BiPAP. 2. Change in mental status, acute metabolic encephalopathy secondary from above, multifactorial. 3. Acute respiratory acidosis. 4. Bilateral leg cellulitis, acute on chronic. 5. Chronic anemia of chronic disease. 6. Transverse fracture beyond the base of the 5th proximal phalanx recently with slight medial displacement. 7. Super morbid obesity with BMI of 56.7. 8. Diabetes mellitus type 2. 9. Hypertension. 10.History of hyperlipidemia. 11.History of sleep apnea. 12.History of cellulitis. 13.Remote history of nicotine dependence. 14.History of THC. RECOMMENDATIONS AND DISCUSSION: Recommend to continue current medications, continue symptomatic treatment. Otherwise, at this time I recommend continue with broad-spectrum antibiotics. Follow the cultures. Continue the bronchodilators. Continue the BiPAP. Follow closely with Pulmonary. Otherwise, patient is also on Lasix drip. We will closely follow with Cardiology. Guarded prognosis. Further recommendations to follow. Orthopedics has seen the patient and recommended a edmundo tape 3rd through 5th toe. Otherwise, prognosis guarded. Further recommendations to follow. MMODL / IJN: [id number] /
[2019-07-16 18:49] LABS: Glucose,Whole Blood 126 mg/dL (75-99)
--- NOTE | 2019-07-16 22:23 | CONS ---
CONSULTATION CHIEF COMPLAINT: Shortness of breath and leg edema. This is a 39-year-old gentleman with history of diabetes, hypertension, dyslipidemia, sleep apnea, cellulitis, who is admitted to hospital with bilateral leg discomfort, cellulitis, and shortness of breath. Cardiology had been consulted for congestive heart failure. His chest x-ray showed pulmonary congestion. The patient was on the floor and because of altered mental status, was transferred to ICU. He was found to have pCO2 more than 100. He is currently on a BiPAP. At the time of my evaluation in the ICU, patient appears very sleepy and does not answer my question, but the nurse tells me that earlier in the day he was more alert. PAST MEDICAL HISTORY: Significant for hypertension, diabetes, dyslipidemia, sleep apnea, and cellulitis. ALLERGIES: Allergic to PHENOBARBITAL. Family history, social history and review of systems I am unable to obtain from the patient due to mental status changes. On exam heart rate is 90 beats per minute, blood pressure is 108/70, respiratory rate 18. Chest exam reveals diminished air entry at the bases without any crackles. Heart exam reveals first and second heart sounds. No gallop. No murmur. Abdomen is soft. Exam of extremities reveals bilateral pitting edema, cellulitis. Chest x-ray shows mild pulmonary congestion. LABS: Labs show that the hemoglobin is 12. Blood gases show a pH of 7.2, pCO2 of 118, PO2 of 65. Potassium is 4.6, creatinine is 0.56. ASSESSMENT: 1. Acute onset congestive heart failure. 2. Respiratory failure with severe hypercarbia. PLAN: I am going to obtain a 2D echo. I agree with the Lasix drip that has been started on him this morning. Will adjust medications based on echo findings. MMODL / IJN: [id number] /
[2019-07-17 00:15] LABS: Glucose,Whole Blood 112 mg/dL (75-99)
[2019-07-17] MEDS ORDERED: ACETAMINOPHEN IV (For NPO) 1,000 MG in EMPTY BAG 1 BAG IVPB ONE (00:45)
[2019-07-17] MEDS: CEFEPIME 2 GM in SODIUM CHLORIDE 0.9% 100 ML IVPB SCH ×3 (00:53→21:06)
[2019-07-17] MEDS: FUROSEMIDE 100 MG in SODIUM CHLORIDE 0.9% 90 ML IV SCH ×2 (00:53→06:00)
[2019-07-17] MEDS: VANCOMYCIN 2,500 MG in SODIUM CHLORIDE 0.9% 500 ML 500 ML IVPB SCH ×2 (00:54→07:52)
[2019-07-17] MEDS: NYSTATIN 100,000 UNIT/GM POWD 15 GM TOPICAL SCH ×3 (00:54→21:05)
[2019-07-17] MEDS: HEPARIN SODIUM,PORCINE 5,000 UNIT/ML 1 ML VIAL SQ SCH ×3 (00:55→15:55)
--- NOTE | 2019-07-17 02:53 | PN ---
PROGRESS NOTE DATE OF SERVICE: 07/16/2019 REASON FOR FOLLOWUP: Bilateral lower extremity cellulitis. INTERVAL HISTORY: The patient is currently afebrile. The patient is hemodynamically stable, not requiring pressor support. Still on the BiPAP. The pCO2 is slowly coming down. He remains to be lethargic and unable to provide any history. No vomiting or any diarrhea per the nursing staff. PHYSICAL EXAMINATION: Blood pressure 135/75 with a pulse of 90, temperature 98, he is 93% on BiPAP. General description is a middle-aged male lying in bed in no distress. Respiratory system: Unlabored breathing with decreased breath sounds, no wheeze. Heart S1, S2. Regular rate and rhythm. Abdomen soft, no tenderness. Bilateral leg swelling, minimal redness, no drainage. LABS: Hemoglobin is 12 with a white count of 5.48. BUN of 9, creatinine 0.56. Blood culture has been negative. DIAGNOSTIC IMPRESSION AND PLAN: 1. Patient with bilateral lower extremity cellulitis. In this patient currently with acute CO2 narcosis requiring a BIPAP. The patient is covered with cefepime and vancomycin, to continue. Will monitor his clinical course closely. 2. Athlete's foot Continue with nystatin powder. MMODL / IJN: [id number] / CAMILO
[2019-07-17 04:49] LABS: African American GFR (CKD) >90 (>60 ml/min/1.73 sqM); Blood Urea Nitrogen 11 mg/dL (9-20); Calcium 7.6 mg/dL (8.4-10.2); Chloride 81 mmol/L (98-107); Glucose 123 mg/dL (74-99); Non-African American GFR(CKD) >90 (>60 ml/min/1.73 sqM); Sodium 138 mmol/L (137-145)
[2019-07-17 04:51] LABS: Anisocytosis Slight; Basophils # (A) 0.3 k/uL (0-0.2); Basophils % (A) 2 %; Eosinophils # (A) 0.2 k/uL (0-0.7); Eosinophils % (A) 1 %; HCT 43.2 % (39.0-53.0); HGB 12.4 gm/dL (13.0-17.5); Hypochromasia Marked; Lymphocytes # (A) 0.6 k/uL (1.0-4.8); Lymphocytes % (A) 5 %; MCHC 28.8 g/dL (31.0-37.0); MCV 76.2 fL (80.0-100.0); Microcytosis Slight; Monocytes # (A) 0.7 k/uL (0-1.0); Monocytes % (A) 6 %; Neutrophils # (A) 10.2 k/uL (1.3-7.7); Neutrophils % (A) 85 %; Platelet Count 201 k/uL (150-450); RBC 5.66 m/uL (4.30-5.90); RDW 17.1 % (11.5-15.5); WBC 12.1 k/uL (3.8-10.6)
[2019-07-17 04:55] LABS: Anion Gap 6 mmol/L
[2019-07-17 04:57] LABS: Carbon Dioxide 51 mmol/L (22-30)
[2019-07-17] MEDS ORDERED: VANCOMYCIN TROUGH DUE 1 EACH MISC MISCELLANE ONE (07:00)
[2019-07-17] MEDS: INSULIN ASPART (NovoLOG) 100 UNIT/ML VIAL SQ SCH ×3 (07:09→18:51)
[2019-07-17] MEDS: IPRATROPIUM-ALBUTEROL 3 ML NEB INHALATION SCH ×3 (07:33→20:35)
[2019-07-17] MEDS: PANTOPRAZOLE 40 MG/10 ML VIAL IVP SCH (07:54)
--- NOTE | 2019-07-17 09:36 | P.PN ---
Subjective Progress Note Date: 07/17/19 Principal diagnosis: Acute hypoxemic and hypercapnic respiratory failure related to fluid overload, pulmonary vascular congestion, suspected underlying obstructive sleep apnea, and COPD On 07/17/2019 patient seen in follow-up in intensive care unit, he remains on BiPAP, pressures of 2004 6, and FiO2 of 35%, he is arousable, she is answering simple questions. He is appropriate, he denies any acute distress. No new chest x-ray today, yesterday's chest x-ray has been reviewed, showing similar- appearing pulmonary vascular congestion and enlarged cardio missed on [place] of cardiogenic or cardiogenic fluid overload. Patient remains on Lasix drip, his been diuresing massively, he is produced 12 L of urine last 24 hours, and he is in -9638 and the fluid balance over the last 24 hours. Has been reviewed, showing white blood cell count of 12.1, hemoglobin 12.4, sodium of 138, potassium is 4.0, chloride is 81, CO2 was 51, BUN of 11 and creatinine 0.57. Lab work is showing significant metabolic alkalosis, likely related to extensive diuresis. Patient is in -8.7 kg over the last 24 hours. Medical coverage is with cefepime and vancomycin for lower extremity cellulitis, fever or chills, blood culture showed no growth. Lower extremities are with minimal redness, no drainage. Objective - Vital Signs Vital signs: Vital Signs Temp 98.9 F 07/17/19 04:00 Pulse 84 07/17/19 07:45 Resp 31 H 07/17/19 07:00 BP 163/98 07/17/19 07:00 Pulse Ox 92 L 07/17/19 07:00 Intake & Output 07/16/19 07/17/19 07/17/19 18:59 06:59 18:59 Intake Total 1442 920 20 Output Total 6600 5400 550 Balance -5158 -4480 -530 Weight 197.9 kg Intake: IV 1442 820 20 0.9 KVO 160 110 10 Cefepime 2 gm In Sodium 100 100 Chloride 0.9% 100 ml @ 200 mls/hr IVPB Q12HR [facility] Rx#:[id number] Furosemide 100 mg In 80 110 10 Sodium Chloride 0.9% 90 ml @ 10 MG/HR 10 mls/hr IV .Q10H [facility] Rx#: [id number] Piperacillin-Tazobactam 3 100 .375 gm In Sodium Chloride 0.9% 100 ml @ 25 mls/hr IVPB Q8HR [facility] Rx# :[id number] Vancomycin 2,500 mg In 1002 500 Sodium Chloride 0.9% 500 ml 500 ml @ 167 mls/hr IVPB Q8HR [facility] Rx#: [id number] Intake, IV Titration 100 Amount Furosemide 100 mg In 100 Sodium Chloride 0.9% 90 ml @ 10 MG/HR 10 mls/hr IV .Q10H [facility] Rx#: [id number] Output: Urine 6600 5400 550 Other: Voiding Method Indwelling Catheter Indwelling Catheter - Exam GENERAL EXAM: Alert, pleasant, obese 39-year-old white male, on BiPAP support, with pressures of 512/6, and FiO2 of 35%, pulse ox of 92% comfortable in no apparent distress. HEAD: Normocephalic/atraumatic. EYES: Normal reaction of pupils, equal size. Conjunctiva pink, sclera white. NOSE: Clear with pink turbinates. THROAT: No erythema or exudates. NECK: No masses, no JVD, no thyroid enlargement, no adenopathy. CHEST: No chest wall deformity. Symmetrical expansion. LUNGS: Equal air entry with no crackles, wheeze, rhonchi or dullness. CVS: Regular rate and rhythm, normal S1 and S2, no gallops, no murmurs, no rubs ABDOMEN: Soft, nontender. No hepatosplenomegaly, normal bowel sounds, no guarding or rigidity. EXTREMITIES: No clubbing, lower extremity edema, minimal redness, no drainage, changes of chronic venous stasis and lower extremities no cyanosis, 2+ pulses and upper and lower extremities. MUSCULOSKELETAL: Muscle strength and tone normal. SPINE: No scoliosis or deformity SKIN: No rashes CENTRAL NERVOUS SYSTEM: Alert and oriented -3. No focal deficits, tone is no rmal in all 4 extremities. PSYCHIATRIC: Alert and oriented -3. Appropriate affect. Intact judgment and insight. - Labs CBC & Chem 7: 07/17/19 04:25 07/17/19 04:25 Labs: Abnormal Lab Results - Last 24 Hours (Table) 07/16/19 07/16/19 07/16/19 Range/Units 09:22 13:34 18:47 WBC (3.8-10.6) k/uL Hgb (13.0-17.5) gm/dL MCV (80.0-100.0) fL MCH (25.0-35.0) pg MCHC (31.0-37.0) g/dL RDW (11.5-15.5) % Neutrophils # (1.3-7.7) k/uL Lymphocytes # (1.0-4.8) k/uL Basophils # (0-0.2) k/uL ABG pH 7.24 L (7.35-7.45) ABG pCO2 118 H* (35-45) mmHg ABG pO2 65 L (83-108) mmHg ABG HCO3 50 H* (21-25) mmol/L ABG Total CO2 54 H (19-24) mmol/L ABG O2 Saturation 90.4 L (94-97) % Chloride (98-107) mmol/L Carbon Dioxide (22-30) mmol/L Creatinine (0.66-1.25) mg/dL Glucose (74-99) mg/dL POC Glucose (mg/dL) 132 H 126 H (75-99) mg/dL Calcium (8.4-10.2) mg/dL 07/17/19 07/17/19 07/17/19 Range/Units 00:13 04:25 04:25 WBC 12.1 H (3.8-10.6) k/uL Hgb 12.4 L (13.0-17.5) gm/dL MCV 76.2 L (80.0-100.0) fL MCH 22.0 L (25.0-35.0) pg MCHC 28.8 L (31.0-37.0) g/dL RDW 17.1 H (11.5-15.5) % Neutrophils # 10.2 H (1.3-7.7) k/uL Lymphocytes # 0.6 L (1.0-4.8) k/uL Basophils # 0.3 H (0-0.2) k/uL ABG pH (7.35-7.45) ABG pCO2 (35-45) mmHg ABG pO2 (83-108) mmHg ABG HCO3 (21-25) mmol/L ABG Total CO2 (19-24) mmol/L ABG O2 Saturation (94-97) % Chloride 81 L (98-107) mmol/L Carbon Dioxide 51 H* (22-30) mmol/L Creatinine 0.57 L (0.66-1.25) mg/dL Glucose 123 H (74-99) mg/dL POC Glucose (mg/dL) 112 H (75-99) mg/dL Calcium 7.6 L (8.4-10.2) mg/dL Microbiology - Last 24 Hours (Table) 07/14/19 13:35 Blood Culture - Preliminary Blood No Growth after 48 hours Assessment and Plan Plan: Assessment: #1. Acute hypoxemic and hypercapnic respiratory failure related to fluid overl oad, in a patient with probable sleep apnea syndrome, pickwickian syndrome, and possible underlying chronic lung disease, possibly COPD #2. Cellulitis of the lower extremities #3. Metabolic alkalosis, likely related to excessive diuresis #4. Morbid obesity BMI 56 kg/m #5. History of sleep apnea syndrome #6. Benign essential hypertension #7. Diabetes mellitus #8. Previous history of tobacco use, and current history of marijuana use #9. History of left foot proximal phalanx of the fifth toe fracture Plan: We will stop IV Lasix, we'll start the patient on Diamox, will continue bronchodilators, continue BiPAP support. Continue antibiotics per ID service recommendations, blood cultures are negative today. BNP was within normal limits, 2-D echo results were reviewed, showing preserved ejection fraction of 50-60%. Hemodynamically stable, no complaints of worsening dyspnea, or chest pain, We'll obtain a follow-up chest x-ray tomorrow, blood work tomorrow. Mentation is appropriate, patient is responding appropriately. No fever or chills. We'll consider the patient on IV Lasix 40 mg twice daily if he develops worsening shortness of breath, or diaresis significantly slows down. For now he continues to diurese significantly. I performed a history & physical examination of the patient and discussed their management with my nurse practitioner, Johnna Queen. I reviewed the nurse practitioner's note and agree with the documented findings and plan of care. Lung sounds are positive for diminished breath sounds. The findings and the impression was discussed with the patient. I attest to the documentation by the nurse practitioner. Time with Patient: Greater than 30
--- NOTE | 2019-07-17 11:36 | PN ---
PROGRESS NOTE This patient is seen for congestive cardiac failure. Patient's medical records reviewed. This patient was admitted with acute hypoxemic hypercapnic respiratory failure, possible secondary to fluid overload. The patient had significant leg edema. The patient was started on Lasix drip and he diuresed fairly well. Now the Lasix drip is discontinued because of significant metabolic alkalosis. The patient has a history of sleep apnea, underlying COPD and history of hypertension. There is no prior history of myocardial infarction. PHYSICAL EXAMINATION: Physical examination at present reveals a 39-year-old obesely built gentleman who currently is not in any acute distress. His blood pressure is 165/84 mmHg, Head, ENT examination is negative. First and second heart sounds are normal. Lungs examination revealed bilateral scattered rhonchi. Abdomen is soft. There is a 1+ leg edema. Patient's CO2 level is 51. Creatinine is 0.57. FINAL IMPRESSION: 1. This patient is admitted with acute hypercapnic respiratory failure and predominantly right-sided heart failure. Echocardiogram reveals overall normal left ventricular systolic function. 2. Patient's blood pressure remains elevated. We will start him on amlodipine 5 mg daily. Once the patient's CO2 is improved, we will consider putting him on Aldactone and maintenance dose of Lasix and if the creatinine remains stable, we will start the patient on JAKE inhibitor. MMODL / IJN: [id number] /
[2019-07-17 11:57] LABS: Glucose,Whole Blood 114 mg/dL (75-99)
[2019-07-17] MEDS: amLODIPine 5 MG TAB PO SCH (15:56)
[2019-07-17] MEDS: ACETAMINOPHEN TAB 500 MG TAB PO PRN (15:56)
[2019-07-17] MEDS ORDERED: VANCOMYCIN 2,250 MG in SODIUM CHLORIDE 0.9% 500 ML 500 ML IVPB SCH (16:00)
[2019-07-17 16:34] LABS: Glucose,Whole Blood 99 mg/dL (75-99)
--- NOTE | 2019-07-17 18:54 | PN ---
PROGRESS NOTE DATE OF SERVICE: 07/17/2019 REASON FOR FOLLOWUP: Bilateral lower extremity cellulitis. INTERVAL HISTORY: The patient is currently afebrile. The patient has been breathing comfortably. He is more awake alert. Denies having any chest pain or any cough. No nausea, no vomiting, no abdominal pain or pain in his lower extremities. Overall swelling has decreased. PHYSICAL EXAMINATION: Blood pressure is 162/75 with a pulse of 95, temperature of 98. He is 90% on BiPAP. General description is a middle-aged male lying in bed in no distress. RESPIRATORY SYSTEM: Unlabored breathing. Clear to auscultation anteriorly. HEART: S1, S2. Regular rate and rhythm. ABDOMEN: Soft. No tenderness. Legs are currently less swollen. Redness has decreased. No drainage. LABS: Hemoglobin 12.4, white count 12.1. BUN of 11, creatinine 0.57. Blood culture has been negative. DIAGNOSTIC IMPRESSION AND PLAN: 1. Patient with bilateral lower extremity cellulitis with diffuse swelling, less likely streptococcal disease. Clinical suspicion is low for underlying MRSA infection with high vancomycin trough and high risk of nephrotoxicity. Discontinue the vancomycin. Keep the patient only on the cefepime. Monitor his clinical course closely. 2. Athlete's foot. Nystatin cream or powder in between the toes twice a day. Father at the bedside. Questions were answered. MMODL / IJN: [id number] /
[2019-07-17] MEDS: LISINOPRIL 5 MG TAB PO SCH (18:57)
[2019-07-17 19:05] LABS: Appearance,Urine Clear (Clear); Bilirubin,Urine Negative (Negative); Blood,Urine Moderate (Negative); Color,Urine Yellow; Glucose,Urine (UA) Negative (Negative); Ketones,Urine 1+ (Negative); Leukocyte Esterase,Urine Small (Negative); Mucus,Urine Rare /hpf; Nitrite,Urine Negative (Negative); PH, Urine 8.5 (5.0-8.0); Protein,Urine 1+ (Negative); RBC,Urine 42 /hpf (0-5); Specific Gravity,Urine 1.015 (1.001-1.035); Urobilinogen,Urine <2.0 mg/dL (<2.0); WBC,Urine 5 /hpf (0-5)
[2019-07-17] MEDS ORDERED: METOPROLOL TARTRATE 12.5 MG TAB PO SCH (21:00)
--- NOTE | 2019-07-17 21:21 | PN ---
PROGRESS NOTE DATE OF SERVICE: 07/17/2019 This 39-year-old gentleman admitted with acute respiratory failure possibly multifactorial was being diuresed yesterday. The patient is having urine output at this time. Patient is being more alkalotic today, possibly related to excessive diuresis which is held. The patient on BiPAP. Sensorium is improved significantly. The patient is currently n.p.o. Multiple consultants following the patient closely. The patient also covered broad-spectrum IV antibiotics. The leg swelling is markedly reduced compared to the admission at this time. Cultures negative so far. PAST MEDICAL HISTORY: Reviewed. REVIEW OF SYMPTOMS: Review of systems could not be taken at this time. The patient is on BiPAP. CURRENT MEDICATIONS: 1. Tylenol 500 mg q.6h p.r.n. 2. Diamox 500 mg IV b.i.d. 3. DuoNeb q.i.d. and p.r.n. 4. Norvasc 5 mg p.o. daily. 5. Cefepime 2 g IV q.8h. 6. Heparin 5000 subcu q8. 7. NovoLog scale. 8. Mycostatin. 9. Protonix. PHYSICAL EXAM: Patient is conscious. Pulse is 111. Blood pressure 127/95. Respirations 18. Temperature normal. Pulse ox 94% on 34%. HEENT: Conjunctivae normal. NECK: No JVD. CARDIOVASCULAR: S1, S2 muffled. RESPIRATIONS: Breath sounds diminished in the bases. A few scattered rhonchi and crackles. ABDOMEN: Soft, obese, nontender. LEGS: Bilateral leg edema. No swelling. NERVOUS SYSTEM: No focal deficits. LAB: WBC 12.2, hemoglobin 12.2. Sodium 130. Potassium 4, calcium 7.6. ASSESSMENT: 1. Acute hypoxic hypercarbic respiratory failure, multifactorial, possibly secondary to congestive heart failure acute exacerbation as well as acute on chronic diastolic dysfunction, ejection fraction 50 to 60% as well as obesity hypoventilation syndrome, Pickwickian syndrome exacerbation on BiPAP. 2. Change in mental status, acute metabolic encephalopathy secondary to above multifactorial. 3. Acute respiratory acidosis and currently metabolic alkalosis. 4. Bilateral leg cellulitis, acute on chronic. 5. Chronic anemia of chronic disease. 6. Transverse fracture beyond the base of the 5th toe proximal phalanx recently with slight medial displacement treated with edmundo tape by Orthopedic surgery. 7. Super morbid obesity BMI of 56.7. 8. Severe gait dysfunction because of above multiple medical issues. 9. Diabetes mellitus type 2. 10.Hypertension. 11.Hyperlipidemia. 12.Obstructive sleep apnea. 13.History of cellulitis. 14.Remote history of nicotine dependence. 15.History of THC. RECOMMENDATIONS AND DISCUSSION: Recommend to continue current medications, management and symptomatic treatment. Continue with Diamox. Continue the broad-spectrum IV antibiotics. The cultures are negative so far. I would also recommend evaluation, possible ECF rehab also. Discussed with the father at the bedside. Further recommendations to follow. MMODL / IJN: [id number] /
[2019-07-17] MEDS ORDERED: hydrALAZINE HCL 20 MG/ML 1 ML VIAL IVP PRN (23:10)
[2019-07-18] LABS: Glucose,Whole Blood 121 mg/dL (75-99)
[2019-07-18] MEDS: INSULIN ASPART (NovoLOG) 100 UNIT/ML VIAL SQ SCH ×5 (00:01→23:04)
[2019-07-18] MEDS ORDERED: METOPROLOL TARTRATE 25 MG TAB PO STA (00:45)
[2019-07-18 05:34] LABS: Anisocytosis Slight; Basophils # (A) 0.1 k/uL (0-0.2); Basophils % (A) 1 %; Eosinophils # (A) 0.2 k/uL (0-0.7); Eosinophils % (A) 1 %; HCT 45.3 % (39.0-53.0); Hypochromasia Marked; Lymphocytes # (A) 0.8 k/uL (1.0-4.8); Lymphocytes % (A) 7 %; MCH 22.2 pg (25.0-35.0); MCHC 28.7 g/dL (31.0-37.0); MCV 77.4 fL (80.0-100.0); Mean Platelet Volume 7.8; Microcytosis Slight; Monocytes # (A) 0.7 k/uL (0-1.0); Monocytes % (A) 6 %; Neutrophils # (A) 9.6 k/uL (1.3-7.7); Neutrophils % (A) 83 %; Platelet Count 265 k/uL (150-450); RBC 5.85 m/uL (4.30-5.90); RDW 17.5 % (11.5-15.5); WBC 11.5 k/uL (3.8-10.6)
[2019-07-18 05:44] LABS: African American GFR (CKD) >90 (>60 ml/min/1.73 sqM); Anion Gap 8 mmol/L; Blood Urea Nitrogen 15 mg/dL (9-20); Calcium 8.5 mg/dL (8.4-10.2); Carbon Dioxide 32 mmol/L (22-30); Chloride 95 mmol/L (98-107); Glucose 107 mg/dL (74-99); Non-African American GFR(CKD) >90 (>60 ml/min/1.73 sqM); Potassium 4.6 mmol/L (3.5-5.1); Sodium 135 mmol/L (137-145)
[2019-07-18 06:15] LABS: Glucose,Whole Blood 118 mg/dL (75-99)
[2019-07-18] MEDS: IPRATROPIUM-ALBUTEROL 3 ML NEB INHALATION SCH ×3 (07:22→20:23)
--- NOTE | 2019-07-18 08:40 | XR ---
EXAMINATION TYPE: XR chest 1V portable DATE OF EXAM: 07/18/2019 COMPARISON: 07/16/2019 HISTORY: Respiratory failure TECHNIQUE: Single frontal view of the chest is obtained. FINDINGS: There is improved degree of pulmonary vascular congestion, now very mild improved perihila r and retrocardiac airspace disease. Cardia mediastinal silhouette is mildly enlarged. Chronic right hemidiaphragm elevation. No acute osseous pathology. IMPRESSION: Improved aeration of the lungs with nearly resolved pulmonary vascular congestion.
[2019-07-18] MEDS: HEPARIN SODIUM,PORCINE 5,000 UNIT/ML 1 ML VIAL SQ SCH ×4 (08:46→23:21)
[2019-07-18] MEDS: PANTOPRAZOLE 40 MG/10 ML VIAL IVP SCH (08:46)
[2019-07-18] MEDS: NYSTATIN 100,000 UNIT/GM POWD 15 GM TOPICAL SCH ×2 (08:47→20:44)
[2019-07-18] MEDS: CEFEPIME 2 GM in SODIUM CHLORIDE 0.9% 100 ML IVPB SCH ×2 (08:47→20:40)
[2019-07-18] MEDS: METOPROLOL TARTRATE 25 MG TAB PO SCH ×2 (08:47→22:04)
[2019-07-18] MEDS: LISINOPRIL 5 MG TAB PO SCH (08:47)
[2019-07-18] MEDS: amLODIPine 5 MG TAB PO SCH (08:47)
[2019-07-18 09:36] LABS: ABG Base Excess 6.4 mmol/L; ABG HCO3 33 mmol/L (21-25); ABG Oxygen Saturation 94.9 % (94-97); ABG PH 7.27 (7.35-7.45); ABG PO2 80 mmHg (83-108); ABG TCO2 36 mmol/L (19-24); Allen Test Performed? Yes
[2019-07-18 09:40] LABS: ABG PCO2 72 mmHg (35-45)
--- NOTE | 2019-07-18 11:04 | P.PN ---
<Johnna Queen M - Last Filed: 07/18/19 10:58> Subjective Progress Note Date: 07/18/19 Principal diagnosis: Acute hypoxemic and hypercapnic respiratory failure related to fluid overload, pulmonary vascular congestion, suspected underlying obstructive sleep apnea, and COPD On 07/17/2019 patient seen in follow-up in intensive care unit, he remains on BiPAP, pressures of 2004 6, and FiO2 of 35%, he is arousable, she is answering simple questions. He is appropriate, he denies any acute distress. No new chest x-ray today, yesterday's chest x-ray has been reviewed, showing similar-appearing pulmonary vascular congestion and enlarged cardio missed on [place] of cardiogenic or cardiogenic fluid overload. Patient remains on Lasix drip, his been diuresing massively, he is produced 12 L of urine last 24 hours, and he is in -9638 and the fluid balance over the last 24 hours. Has been reviewed, showing white blood cell count of 12.1, hemoglobin 12.4, sodium of 138, potassium is 4.0, chloride is 81, CO2 was 51, BUN of 11 and creatinine 0.57. Lab work is showing significant metabolic alkalosis, likely related to extensive diuresis. Patient is in -8.7 kg over the last 24 hours. Medical coverage is with cefepime and vancomycin for lower extremity cellulitis, fever or chills, blood culture showed no growth. Lower extremities are with minimal redness, no drainage. On 07/18/2019 patient seen in follow-up. On BiPAP support, but his mentation has improved, he is answering questions, he is alert and oriented 3, his been tolerating nasal cannula trials, usually at 15 L, and his maintaining a pulse ox of 90-91%. Continues to diurese, he is maintaining negative fluid balance, he is in -4890 mL over the last 24 hours, fluid volume status is improving, lower extremity edema is improving, significant erythema or warmth to the lower extremities, patient is on cefepime for antibiotic coverage, ID service is following and vancomycin has been discontinued. Lung sounds reveal a few rhonchi, no significant wheezes, patient has been given several doses of Diamox, and today's blood work has been reviewed showing improvement in patient's metabolic alkalosis, with a CO2 of 32, down from 51 on yesterday's labs, serum sodium is 135, potassium is 4.6, chloride is 95, blood gas was obtained this morning, on BiPAP support, and showed a pO2 of 80, pCO2 of 7 due to, and pH of 7.27, improvement from yesterday's blood gas. no Fever or chills, hemodynamically stable. Objective - Vital Signs Vital signs: Vital Signs Temp 98.4 F 07/18/19 04:00 Pulse 98 07/18/19 09:00 Resp 20 07/18/19 09:00 BP 138/69 07/18/19 09:00 Pulse Ox 95 07/18/19 09:00 Intake & Output 07/17/19 07/18/19 07/18/19 18:59 06:59 18:59 Intake Total 1430 230 120 Output Total 4350 2200 400 Balance -2920 -1970 -280 Weight 196.5 kg Intake: IV 1310 230 120 0.9 KVO 180 230 20 Cefepime 2 gm In Sodium 100 100 Chloride 0.9% 100 ml @ 200 mls/hr IVPB Q12HR [facility] Rx#:[id number] Furosemide 100 mg In 30 Sodium Chloride 0.9% 90 ml @ 10 MG/HR 10 mls/hr IV .Q10H [facility] Rx#: [id number] Vancomycin 2,500 mg In 1000 Sodium Chloride 0.9% 500 ml 500 ml @ 167 mls/hr IVPB Q8HR [facility] Rx#: [id number] Oral 120 Output: Urine 4350 2200 400 Other: Voiding Method Indwelling Catheter Indwelling Catheter Indwelling Catheter # Voids 2 # Bowel Movements 1 - Exam GENERAL EXAM: Alert, pleasant, obese 39-year-old white male, on BiPAP support, with pressures of 12/6, and FiO2 of 35%, pulse ox of 92% comfortable in no apparent distress. HEAD: Normocephalic/atraumatic. EYES: Normal reaction of pupils, equal size. Conjunctiva pink, sclera white. NOSE: Clear with pink turbinates. THROAT: No erythema or exudates. NECK: No masses, no JVD, no thyroid enlargement, no adenopathy. CHEST: No chest wall deformity. Symmetrical expansion. LUNGS: Equal air entry with no crackles, wheeze, rhonchi or dullness. CVS: Regular rate and rhythm, normal S1 and S2, no gallops, no murmurs, no rubs ABDOMEN: Soft, nontender. No hepatosplenomegaly, normal bowel sounds, no guarding or rigidity. EXTREMITIES: No clubbing, lower extremity edema, minimal redness, no drainage, changes of chronic venous stasis and lower extremities no cyanosis, 2+ pulses and upper and lower extremities. MUSCULOSKELETAL: Muscle strength and tone normal. SPINE: No scoliosis or deformity SKIN: No rashes CENTRAL NERVOUS SYSTEM: Alert and oriented -3. No focal deficits, tone is normal in all 4 extremities. PSYCHIATRIC: Alert and oriented -3. Appropriate affect. Intact judgment and insight. - Labs CBC & Chem 7: 07/18/19 04:37 07/18/19 04:37 Labs: Abnormal Lab Results - Last 24 Hours (Table) 07/17/19 07/17/19 07/17/19 Range/Units 11:56 18:55 23:58 WBC (3.8-10.6) k/uL MCV (80.0-100.0) fL MCH (25.0-35.0) pg MCHC (31.0-37.0) g/dL RDW (11.5-15.5) % Neutrophils # (1.3-7.7) k/uL Lymphocytes # (1.0-4.8) k/uL ABG pH (7.35-7.45) ABG pCO2 (35-45) mmHg ABG pO2 (83-108) mmHg ABG HCO3 (21-25) mmol/L ABG Total CO2 (19-24) mmol/L Sodium (137-145) mmol/L Chloride (98-107) mmol/L Carbon Dioxide (22-30) mmol/L Glucose (74-99) mg/dL POC Glucose (mg/dL) 114 H 121 H (75-99) mg/dL Urine pH 8.5 H (5.0-8.0) Urine Protein 1+ H (Negative) Urine Ketones 1+ H (Negative) Urine Blood Moderate H (Negative) Ur Leukocyte Esterase Small H (Negative) Urine RBC 42 H (0-5) /hpf Urine Mucus Rare H (None) /hpf 07/18/19 07/18/19 07/18/19 Range/Units 04:37 04:37 06:14 WBC 11.5 H (3.8-10.6) k/uL MCV 77.4 L (80.0-100.0) fL MCH 22.2 L (25.0-35.0) pg MCHC 28.7 L (31.0-37.0) g/dL RDW 17.5 H (11.5-15.5) % Neutrophils # 9.6 H (1.3-7.7) k/uL Lymphocytes # 0.8 L (1.0-4.8) k/uL ABG pH (7.35-7.45) ABG pCO2 (35-45) mmHg ABG pO2 (83-108) mmHg ABG HCO3 (21-25) mmol/L ABG Total CO2 (19-24) mmol/L Sodium 135 L (137-145) mmol/L Chloride 95 L (98-107) mmol/L Carbon Dioxide 32 H (22-30) mmol/L Glucose 107 H (74-99) mg/dL POC Glucose (mg/dL) 118 H (75-99) mg/dL Urine pH (5.0-8.0) Urine Protein (Negative) Urine Ketones (Negative) Urine Blood (Negative) Ur Leukocyte Esterase (Negative) Urine RBC (0-5) /hpf Urine Mucus (None) /hpf 07/18/19 Range/Units 09:32 WBC (3.8-10.6) k/uL MCV (80.0-100.0) fL MCH (25.0-35.0) pg MCHC (31.0-37.0) g/dL RDW (11.5-15.5) % Neutrophils # (1.3-7.7) k/uL Lymphocytes # (1.0-4.8) k/uL ABG pH 7.27 L (7.35-7.45) ABG pCO2 72 H* (35-45) mmHg ABG pO2 80 L (83-108) mmHg ABG HCO3 33 H (21-25) mmol/L ABG Total CO2 36 H (19-24) mmol/L Sodium (137-145) mmol/L Chloride (98-107) mmol/L Carbon Dioxide (22-30) mmol/L Glucose (74-99) mg/dL POC Glucose (mg/dL) (75-99) mg/dL Urine pH (5.0-8.0) Urine Protein (Negative) Urine Ketones (Negative) Urine Blood (Negative) Ur Leukocyte Esterase (Negative) Urine RBC (0-5) /hpf Urine Mucus (None) /hpf Microbiology - Last 24 Hours (Table) 07/14/19 13:35 Blood Culture - Preliminary Blood No Growth after 72 hours Assessment and Plan Plan: Assessment: #1. Acute hypoxemic and hypercapnic respiratory failure related to fluid overload, in a patient with probable sleep apnea syndrome, pickwickian syndrome, and possible underlying chronic lung disease, possibly COPD #2. Cellulitis of the lower extremities #3. Metabolic alkalosis, likely related to excessive diuresis #4. Morbid obesity BMI 56 kg/m #5. History of sleep apnea syndrome #6. Benign essential hypertension #7. Diabetes mellitus #8. Previous history of tobacco use, and current history of marijuana use #9. History of left foot proximal phalanx of the fifth toe fracture Plan: Patient continues to improve, today's chest x-ray and blood gases show improvement in terms of fluid volume status, CO2 retention and oxygenation. Mentation is appropriate. No lethargy. No fever or chills, hemodynamically sta ble, we'll stop the Diamox, continue antibiotics per ID service recommendations, patient is up to the chair, tolerating activity well, we will allow a nasal cannula trials, we'll continue with BiPAP support at bedtime and as needed through the day. We'll continue to follow. I performed a history & physical examination of the patient and discussed their management with my nurse practitioner, Johnna Queen. I reviewed the nurse practitioner's note and agree with the documented findings and plan of care. Lung sounds are positive for diminished breath sounds. The findings and the impression was discussed with the patient. I attest to the documentation by the nurse practitioner. Time with Patient: Less than 30 <Dacia Felipe - Last Filed: 07/18/19 16:53> Objective - Vital Signs Vital signs: Vital Signs Temp 98.4 F 07/18/19 16:00 Pulse 110 H 07/18/19 16:00 Resp 22 07/18/19 16:00 BP 98/59 07/18/19 16:00 Pulse Ox 97 07/18/19 16:00 Intake & Output 07/17/19 07/18/19 07/18/19 18:59 06:59 18:59 Intake Total 5224 288 5642 Output Total 4350 2200 950 Balance -2919 270 Weight 196.5 kg Intake: IV 1310 230 120 0.9 KVO 180 230 20 Cefepime 2 gm In Sodium 100 100 Chloride 0.9% 100 ml @ 200 mls/hr IVPB Q12HR [facility] Rx#:[id number] Furosemide 100 mg In 30 Sodium Chloride 0.9% 90 ml @ 10 MG/HR 10 mls/hr IV .Q10H [facility] Rx#: [id number] Vancomycin 2,500 mg In 1000 Sodium Chloride 0.9% 500 ml 500 ml @ 167 mls/hr IVPB Q8HR [facility] Rx#: [id number] Oral 120 1100 Output: Urine 4350 2200 950 Other: Voiding Method Indwelling Catheter Indwelling Catheter Indwelling Catheter # Voids 2 # Bowel Movements 1 - Labs CBC & Chem 7: 07/18/19 04:37 07/18/19 04:37 Labs: Abnormal Lab Results - Last 24 Hours (Table) 07/17/19 07/17/19 07/18/19 Range/Units 18:55 23:58 04:37 WBC 11.5 H (3.8-10.6) k/uL MCV 77.4 L (80.0-100.0) fL MCH 22.2 L (25.0-35.0) pg MCHC 28.7 L (31.0-37.0) g/dL RDW 17.5 H (11.5-15.5) % Neutrophils # 9.6 H (1.3-7.7) k/uL Lymphocytes # 0.8 L (1.0-4.8) k/uL ABG pH (7.35-7.45) ABG pCO2 (35-45) mmHg ABG pO2 (83-108) mmHg ABG HCO3 (21-25) mmol/L ABG Total CO2 (19-24) mmol/L Sodium (137-145) mmol/L Chloride (98-107) mmol/L Carbon Dioxide (22-30) mmol/L Glucose (74-99) mg/dL POC Glucose (mg/dL) 121 H (75-99) mg/dL Urine pH 8.5 H (5.0-8.0) Urine Protein 1+ H (Negative) Urine Ketones 1+ H (Negative) Urine Blood Moderate H (Negative) Ur Leukocyte Esterase Small H (Negative) Urine RBC 42 H (0-5) /hpf Urine Mucus Rare H (None) /hpf 07/18/19 07/18/19 07/18/19 Range/Units 04:37 06:14 09:32 WBC (3.8-10.6) k/uL MCV (80.0-100.0) fL MCH (25.0-35.0) pg MCHC (31.0-37.0) g/dL RDW (11.5-15.5) % Neutrophils # (1.3-7.7) k/uL Lymphocytes # (1.0-4.8) k/uL ABG pH 7.27 L (7.35-7.45) ABG pCO2 72 H* (35-45) mmHg ABG pO2 80 L (83-108) mmHg ABG HCO3 33 H (21-25) mmol/L ABG Total CO2 36 H (19-24) mmol/L Sodium 135 L (137-145) mmol/L Chloride 95 L (98-107) mmol/L Carbon Dioxide 32 H (22-30) mmol/L Glucose 107 H (74-99) mg/dL POC Glucose (mg/dL) 118 H (75-99) mg/dL Urine pH (5.0-8.0) Urine Protein (Negative) Urine Ketones (Negative) Urine Blood (Negative) Ur Leukocyte Esterase (Negative) Urine RBC (0-5) /hpf Urine Mucus (None) /hpf 07/18/19 Range/Units 11:48 WBC (3.8-10.6) k/uL MCV (80.0-100.0) fL MCH (25.0-35.0) pg MCHC (31.0-37.0) g/dL RDW (11.5-15.5) % Neutrophils # (1.3-7.7) k/uL Lymphocytes # (1.0-4.8) k/uL ABG pH (7.35-7.45) ABG pCO2 (35-45) mmHg ABG pO2 (83-108) mmHg ABG HCO3 (21-25) mmol/L ABG Total CO2 (19-24) mmol/L Sodium (137-145) mmol/L Chloride (98-107) mmol/L Carbon Dioxide (22-30) mmol/L Glucose (74-99) mg/dL POC Glucose (mg/dL) 115 H (75-99) mg/dL Urine pH (5.0-8.0) Urine Protein (Negative) Urine Ketones (Negative) Urine Blood (Negative) Ur Leukocyte Esterase (Negative) Urine RBC (0-5) /hpf Urine Mucus (None) /hpf Microbiology - Last 24 Hours (Table) 07/14/19 13:35 Blood Culture - Preliminary Blood No Growth after 72 hours Assessment and Plan Plan: Is a joint evaluations was done along with nurse practitioner. The patient received Diamox yesterday and the metabolic alkalosis improved significantly. Blood gases from this morning was noted. The patient is much more awake and alert. He tells that he had undergone a sleep study at [facility] under the care of Dr. Kwasi Carty. I'm going to retrieve the sleep study and try to arrange this patient a home ventilator probably a BiPAP unit. He will also need oxygen. He will be started on Lasix 40 mg by mouth twice a day. We'll continue to follow. Keep him and I further 24 hours. He is still diuresing well.
--- NOTE | 2019-07-18 11:08 | PN ---
PROGRESS NOTE This patient is admitted with fluid overload and predominantly right-sided failure. Patient responded significantly with IV Lasix. He has been diuresing well. He is currently only on Diamox. His laboratory tests shows improvement in the metabolic alkalosis with the patient's CO2 is 32. Patient's leg edema is significantly improved. First and second heart sounds are normal. Lungs reveal bilateral scattered rhonchi. I will add Aldactone 25 mg b.i.d. MMODL / IJN: [id number] /
[2019-07-18 11:50] LABS: Glucose,Whole Blood 115 mg/dL (75-99)
--- NOTE | 2019-07-18 13:46 | PN ---
PROGRESS NOTE DATE OF SERVICE: 07/18/2019. This 39-year-old gentleman who was admitted with acute hypoxic hypercarbic respiratory failure possibly secondary to congestive heart failure acute exacerbation and as well as Pickwickian syndrome exacerbation being closely monitored. The patient is able to sit up near the bedside. The patient in ICU, patient is on BiPAP. His most recent chest x-ray personally reviewed by me showed evidence of increased vascularity with CHF, which is much improved. No chest pain or palpitations. PAST MEDICAL HISTORY: Reviewed. REVIEW OF SYSTEMS: CARDIOVASCULAR SYSTEM: As mentioned earlier. RESPIRATORY SYSTEM: As mentioned earlier. GI: No nausea. : No dysuria. NERVOUS SYSTEM: No numbness or weakness. MEDICATIONS: Current medications are reviewed and include: 1. Tylenol 500 mg q.6 p.r.n. 2. DuoNeb q.i.d. and p.r.n. 3. Norvasc 5 mg daily. 4. Cefepime 2 grams IV b.i.d. 5. Heparin 5000 subcu q.8. 6. Apresoline 7. Zestril 5 mg p.o. daily. 8. Lopressor 25 mg p.o. b.i.d. 9. Mycostatin. 10.Protonix 40 mg. 11.Aldactone. PHYSICAL EXAMINATION: The patient is alert and oriented x3. Pulse is 105, blood pressure 93/57, respiration 11, temperature 98 degrees, pulse ox 93% on 15 L. HEENT: Conjunctivae normal. NECK: No jugular venous distention. CARDIOVASCULAR: S1, S2 muffled. RESPIRATORY: Breath sounds diminished in the bases. Bilateral scattered rhonchi and crackles. ABDOMEN: Soft, obese, nontender. LEGS: Bilateral leg edema, cellulitis. NERVOUS SYSTEM: No focal deficits. LABS: Labs are ABGs pH of 7.27, pCO2 of 72. WBC 11.5. Cultures are still pending at this time. ASSESSMENT: 1. Acute hypoxic hypercarbic respiratory failure, multifactorial, possibly secondary to congestive heart failure acute exacerbation with acute on chronic diastolic dysfunction, ejection fraction 50% to 60% as well as obesity hypoventilation syndrome, Pickwickian syndrome on BiPAP. 2. Change in mental status, acute metabolic encephalopathy, multifactorial secondary to above. 3. Acute respiratory acidosis and currently metabolic alkalosis. 4. Bilateral leg cellulitis, acute on chronic. 5. Chronic anemia of chronic disease. 6. Transverse fracture beyond the base of the 5th toe proximal phalanx recently with slight medial displacement treated with edmundo tape by Orthopedic Surgery. 7. Super morbid obesity, body mass index of 56.7. 8. Severe gait dysfunction because of the above multiple medical issues. 9. Diabetes mellitus type 2. 10.Hypertension. 11.Hyperlipidemia. 12.Obstructive sleep apnea. 13.History of cellulitis. 14.Remote history of nicotine dependence. 15.History of THC. RECOMMENDATIONS AND DISCUSSION: Recommend to continue current medications, continue symptomatic treatment. Continue with bronchodilators. Continue with BiPAP. Monitor closely. Monitor fluid and electrolyte balance closely. Guarded prognosis because of multiple complex medical issues. Further recommendations to follow. MMODL / IJN: [id number] / CAMILO
[2019-07-18] MEDS ORDERED: FUROSEMIDE 40 MG TAB PO SCH ×2 (14:30→16:00)
--- NOTE | 2019-07-18 15:49 | PN ---
PROGRESS NOTE DATE OF SERVICE: 07/18/2019. REASON FOR FOLLOWUP: 1. Bilateral lower extremity cellulitis. 2. Athlete's foot. INTERVAL HISTORY: The patient is currently afebrile. The patient has been breathing more comfortably. Denies having any chest pain. Occasional cough, but not bringing up any sputum. No nausea or vomiting. No abdominal pain. No diarrhea. PHYSICAL EXAMINATION: Blood pressure is 118/60 with a pulse of 105, temperature 98. He is 93% on high-flow oxygen. General description is a middle-aged male lying in bed in no distress. RESPIRATORY SYSTEM: Unlabored breathing. Decreased intensity of breath sounds. No wheeze. HEART: S1, S2. Regular rate and rhythm. ABDOMEN: Soft. No tenderness. Legs have decreased swelling, very minimal redness. No open wound or any drainage. LABS: Hemoglobin 13, white count 11.5. BUN of 15, creatinine 0.70. Blood culture has been negative. DIAGNOSTIC IMPRESSION AND PLAN: 1. Patient with bilateral lower extremity cellulitis. The patient's overall swelling and redness have improved. To continue with the cefepime and monitor his clinical course closely. 2. Athlete's foot. Continue with nystatin cream twice a day. MMODL / IJN: [id number] /
[2019-07-18 17:54] LABS: Glucose,Whole Blood 109 mg/dL (75-99)
[2019-07-18 20:57] LABS: Glucose,Whole Blood 99 mg/dL (75-99)
[2019-07-18] MEDS ORDERED: SPIRONOLACTONE 25 MG TAB PO SCH (21:00)
[2019-07-19 05:41] LABS: Anisocytosis Slight; HCT 41.4 % (39.0-53.0); HGB 11.8 gm/dL (13.0-17.5); Hypochromasia Marked; MCH 22.5 pg (25.0-35.0); MCHC 28.5 g/dL (31.0-37.0); MCV 78.8 fL (80.0-100.0); Mean Platelet Volume 7.4; Microcytosis Slight; Platelet Count 237 k/uL (150-450); Poikilocytosis Slight; RBC 5.25 m/uL (4.30-5.90); RDW 17.6 % (11.5-15.5); WBC 8.8 k/uL (3.8-10.6)
[2019-07-19 06:38] LABS: Calcium 8.6 mg/dL (8.4-10.2); Potassium 4.5 mmol/L (3.5-5.1)
[2019-07-19 06:43] LABS: Glucose,Whole Blood 109 mg/dL (75-99)
[2019-07-19] MEDS: INSULIN ASPART (NovoLOG) 100 UNIT/ML VIAL SQ SCH ×3 (06:56→18:23)
[2019-07-19] MEDS: IPRATROPIUM-ALBUTEROL 3 ML NEB INHALATION SCH ×3 (07:01→19:24)
[2019-07-19] MEDS: HEPARIN SODIUM,PORCINE 5,000 UNIT/ML 1 ML VIAL SQ SCH ×2 (08:23→16:28)
[2019-07-19] MEDS: CEFEPIME 2 GM in SODIUM CHLORIDE 0.9% 100 ML IVPB SCH ×2 (08:23→21:50)
[2019-07-19] MEDS: PANTOPRAZOLE 40 MG/10 ML VIAL IVP SCH (08:23)
[2019-07-19] MEDS ORDERED: SODIUM CHLORIDE 0.9% 1,000 ML IV ONE (08:47)
--- NOTE | 2019-07-19 09:37 | XR ---
EXAMINATION TYPE: XR chest 1V portable DATE OF EXAM: 07/19/2019 COMPARISON: 07/18/2019 HISTORY: Shortness of breath TECHNIQUE: Single frontal view of the chest is obtained. FINDINGS: There is no focal air space opacity, pleural effusion, or pneumothorax seen. Very minimal pulmonary vascular prominence is unchanged. The cardiac silhouette size is mildly enlarged. The os seous structures are intact. IMPRESSION: Very minimal pulmonary vascular prominence. Otherwise no acute cardiopulmonary process.
--- NOTE | 2019-07-19 11:36 | PN ---
PROGRESS NOTE This patient was admitted with respiratory failure with predominantly right-sided heart failure. Patient remains clinically stable. Denies any respiratory distress. He is on nasal cannula. Blood pressure is 104/56 mmHg. HEART: First and second heart sounds are heard. Lungs are clinically clear to auscultation and percussion. This patient's creatinine has increased to 1.96 and BUN is 47. The patient's diuretics are discontinued. The patient has been treated with IV fluids. His acute renal failure most likely secondary to over diuresis. MMODL / IJN: [id number] /
[2019-07-19] MEDS: METOPROLOL TARTRATE 25 MG TAB PO SCH ×2 (11:39→21:50)
[2019-07-19] MEDS: amLODIPine 5 MG TAB PO SCH (11:39)
[2019-07-19] MEDS: NYSTATIN 100,000 UNIT/GM POWD 15 GM TOPICAL SCH ×2 (11:40→22:10)
[2019-07-19 11:49] LABS: Glucose,Whole Blood 124 mg/dL (75-99)
--- NOTE | 2019-07-19 13:33 | P.PN ---
Subjective Progress Note Date: 07/19/19 On 07/17/2019 patient seen in follow-up in intensive care unit, he remains on BiPAP, pressures of 2004 6, and FiO2 of 35%, he is arousable, she is answering simple questions. He is appropriate, he denies any acute distress. No new chest x-ray today, yesterday's chest x-ray has been reviewed, showing similar- appearing pulmonary vascular congestion and enlarged cardio missed on [place] of cardiogenic or cardiogenic fluid overload. Patient remains on Lasix drip, his been diuresing massively, he is produced 12 L of urine last 24 hours, and he is in -9638 and the fluid balance over the last 24 hours. Has been reviewed, showing white blood cell count of 12.1, hemoglobin 12.4, sodium of 138, pot assium is 4.0, chloride is 81, CO2 was 51, BUN of 11 and creatinine 0.57. Lab work is showing significant metabolic alkalosis, likely related to extensive diuresis. Patient is in -8.7 kg over the last 24 hours. Medical coverage is with cefepime and vancomycin for lower extremity cellulitis, fever or chills, blood culture showed no growth. Lower extremities are with minimal redness, no drainage. On 07/18/2019 patient seen in follow-up. On BiPAP support, but his mentation has improved, he is answering questions, he is alert and oriented 3, his been tolerating nasal cannula trials, usually at 15 L, and his maintaining a pulse ox of 90-91%. Continues to diurese, he is maintaining negative fluid balance, he is in -4890 mL over the last 24 hours, fluid volume status is improving, lower extremity edema is improving, significant erythema or warmth to the lower extremities, patient is on cefepime for antibiotic coverage, ID service is following and vancomycin has been discontinued. Lung sounds reveal a few rhonchi, no significant wheezes, patient has been given several doses of Diamox, and today's blood work has been reviewed showing improvement in patient's metabolic alkalosis, with a CO2 of 32, down from 51 on yesterday's labs, serum sodium is 135, potassium is 4.6, chloride is 95, blood gas was obtained this morning, on BiPAP support, and showed a pO2 of 80, pCO2 of 7 due to, and pH of 7.27, improvement from yesterday's blood gas. no Fever or chills, hemodynamically stable. On 07/19/2019, the patient remains in the intensive care unit. He is awake and alert and following commands. He remains on oxygen and currently is on 3 L of oxygen by nasal cannula. Note that his oxidation is improved from yesterday as the patient was as high as 15 L of oxygen. The patient unfortunately developed an acute kidney injury. On morning blood work, the creatinine is up to 1.9 and the patient got urine output. Based on this, I gave him a liter of bolus immediately and I asked him to increase his fluid intake. The patient is currently off diuretics. I stopped Aldactone. I also discontinued the lisinopril. He has showed improvement in his urine output following this inter vention. A repeat creatinine will be obtained in few hours times. Meanwhile, I was able to retrieve the patient's polysomnography report and the patient had a sleep study that was done on 08/31/2017 through [facility] and based on the polysomnography results, the patient's very severe obstructive sleep apnea with an AHI of 96.2 with severe nocturnal oxygen desaturation which was as low as 72%. Following that the patient was given CPAP titration. He failed CPAP and ultimately was titrated to a BiPAP pressure of 18/14 cm of water. The patient did not receive his machine back then for reasons that is not clear to me and probably this was related to his compliance. Is very important for this patient to have his BiPAP machine at time of discharge knowing that he has severe obstructive sleep apnea and chronic hypercapnic respiratory failure. Mental status is improved. No nausea. No vomiting. No abdominal pain. His tolerating his diet. No chest pain. No significant cough or sputum production. Objective - Vital Signs Vital signs: Vital Signs Temp 98.0 F 07/19/19 12:00 Pulse 100 07/19/19 12:00 Resp 15 07/19/19 12:00 BP 112/58 07/19/19 12:00 Pulse Ox 95 07/19/19 08:00 Intake & Output 07/18/19 07/19/19 07/19/19 18:59 06:59 18:59 Intake Total 1220 1722 2000 Output Total 1040 765 115 Balance 630 431 5369 Weight 195.9 kg Intake: IV 120 100 100 0.9 KVO 20 Cefepime 2 gm In Sodium 100 100 100 Chloride 0.9% 100 ml @ 200 mls/hr IVPB Q12HR [facility] Rx#:[id number] Intake, IV Titration 500 Amount Sodium Chloride 0.9% 1, 500 000 ml @ 999 mls/hr IV . Q1H1M ONE Rx#:[id number] Oral 1100 1622 1400 Output: Urine 1040 765 115 Other: Voiding Method Indwelling Catheter Indwelling Catheter Indwelling Catheter # Voids 2 2 - Exam GENERAL EXAM: Alert, pleasant, obese 39-year-old white male, on 3l of oxygen by nasal cannula with a pulse ox of above 90% HEAD: Normocephalic/atraumatic. EYES: Normal reaction of pupils, equal size. Conjunctiva pink, sclera white. NOSE: Clear with pink turbinates. THROAT: No erythema or exudates. NECK: No masses, no JVD, no thyroid enlargement, no adenopathy. CHEST: No chest wall deformity. Symmetrical expansion. LUNGS: Equal air entry with no crackles, wheeze, rhonchi or dullness. CVS: Regular rate and rhythm, normal S1 and S2, no gallops, no murmurs, no rubs ABDOMEN: Soft, nontender. No hepatosplenomegaly, normal bowel sounds, no guarding or rigidity. EXTREMITIES: No clubbing, lower extremity edema, minimal redness, no drainage, changes of chronic venous stasis and lower extremities no cyanosis, 2+ pulses and upper and lower extremities. MUSCULOSKELETAL: Muscle strength and tone normal. SPINE: No scoliosis or deformity SKIN: No rashes CENTRAL NERVOUS SYSTEM: Alert and oriented -3. No focal deficits, tone is normal in all 4 extremities. PSYCHIATRIC: Alert and oriented -3. Appropriate affect. Intact judgment and insight. - Labs CBC & Chem 7: 07/19/19 04:58 07/19/19 04:58 Labs: Abnormal Lab Results - Last 24 Hours (Table) 07/18/19 07/19/19 07/19/19 Range/Units 17:52 04:58 04:58 Hgb 11.8 L (13.0-17.5) gm/dL MCV 78.8 L (80.0-100.0) fL MCH 22.5 L (25.0-35.0) pg MCHC 28.5 L (31.0-37.0) g/dL RDW 17.6 H (11.5-15.5) % Sodium 134 L (137-145) mmol/L Chloride 95 L (98-107) mmol/L Carbon Dioxide 31 H (22-30) mmol/L BUN 47 H (9-20) mg/dL Creatinine 1.96 H (0.66-1.25) mg/dL POC Glucose (mg/dL) 109 H (75-99) mg/dL 07/19/19 07/19/19 Range/Units 06:40 11:47 Hgb (13.0-17.5) gm/dL MCV (80.0-100.0) fL MCH (25.0-35.0) pg MCHC (31.0-37.0) g/dL RDW (11.5-15.5) % Sodium (137-145) mmol/L Chloride (98-107) mmol/L Carbon Dioxide (22-30) mmol/L BUN (9-20) mg/dL Creatinine (0.66-1.25) mg/dL POC Glucose (mg/dL) 109 H 124 H (75-99) mg/dL Microbiology - Last 24 Hours (Table) 07/15/19 13:00 Urine Culture - Final Urine,Catheterized 07/14/19 13:35 Blood Culture - Preliminary Blood No Growth after 96 hours Assessment and Plan Plan: #1. Acute hypoxemic and hypercapnic respiratory failure related to fluid overload, in a patient with probable sleep apnea syndrome, pickwickian syndrome, and possible underlying chronic lung disease, possibly COPD he had the patient was in acute hypoxic and hypercapnic respiratory failure. In terms of his hypox emia, his oxidation is improved and the patient is currently on 3 L of oxygen by nasal cannula. He was also treated with BiPAP for respiratory support throughout his current hospitalization. Currently is on 3 L and he is ambulating. I was able to retrieve his previous polysomnogram that was done and October 2017. #2. Cellulitis of the lower extremities, improving and the patient had signific ant improvement in lower extremity edema #3. Metabolic alkalosis, likely related to excessive diuresis #4. Morbid obesity BMI 56 kg/m #5. Severe DORYS with an AHI of 96.2 and the patient was titrated to a BiPAP pressure of 18/14 cm of water. #6. Benign essential hypertension #7. Diabetes mellitus #8. Previous history of tobacco use, and current history of marijuana use #9. History of left foot proximal phalanx of the fifth toe fracture #10 acute kidney injury with a creatinine of 1.9, probably related to aggressive diuresis, diuretics and aggie inhibitors. Plan Stop the lisinopril. Hold diuretics including Aldactone. Hold Lasix. Give the patient liter of IV fluids. Encourage oral intake. Repeat creatinine. I'm going to order for this patient a BiPAP machine which is going to be a CPAP to. Nevertheless the pressures will be set at a fixed BiPAP pressure of 18/14 cm of water. He will need to see me back for a compliance the check and follow-up changes will be done on his BiPAP setting on outpatient basis. Continued IV cefepime regarding lower extremity cellulitis. Continue DuoNeb nebulized treatments around the clock. Monitor the creatinine. Monitor the blood pressure. We'll continue to follow. Another issue is morbid obesity and his difficulty laying down flat in bed. This patient may benefit from a hospital bed. I'm going to work with his behavioral health case manager to arrange for him a hospital bed on outpatient basis which will obviously optimize his pulmonary status and facilitate the BiPAP use on outpatient basis. As mentioned, he is morbidly obese.
[2019-07-19 14:33] LABS: Calcium 8.8 mg/dL (8.4-10.2); Potassium 4.7 mmol/L (3.5-5.1)
[2019-07-19 17:09] LABS: Glucose,Whole Blood 120 mg/dL (75-99)
--- NOTE | 2019-07-19 18:39 | PN ---
PROGRESS NOTE DATE OF SERVICE: 07/19/2019. This 39-year-old gentleman who was admitted with acute hypoxic hypercarbic respiratory failure had pickwickian syndrome. The patient also had CHF, acute exacerbation. After intravenous Lasix the patient improved significantly. The patient is sitting by the bedside at this time. The patient has bilateral leg cellulitis. The cultures have grown no significant organisms currently. The patient is being closely monitored. The patient's hypercarbia is also improving with CO2 of 29 in the BMP at this time. Past medical history reviewed. REVIEW OF SYSTEMS: CARDIOVASCULAR SYSTEM: No angina, palpitations. RESPIRATORY SYSTEM: As mentioned earlier. GI: No nausea, vomiting. : No dysuria or retention. NERVOUS SYSTEM: No numbness, weakness. CURRENT MEDICATIONS: Reviewed. They include: 1. Tylenol 500 mg q.6 p.r.n. 2. DuoNeb q.i.d. and p.r.n. 3. Norvasc 5 mg p.o. daily. 4. Cefepime 2 grams b.i.d. 5. Heparin 5000 units subcutaneously q.8. 6. Apresoline 10 mg q.8 p.r.n. 7. NovoLog scale. 8. Lopressor 25 mg p.o. b.i.d. 9. Narcan. 10.Mycostatin. 11.Protonix. PHYSICAL EXAMINATION: Patient is alert, oriented x3. Pulse 95, blood pressure 100/49, respiration 15, temperature normal, pulse ox 94% on 3 L. HEENT: Conjunctivae normal. Oral mucosa moist. NECK: No jugular venous distention. No carotid bruit. No lymph node enlargement. CARDIOVASCULAR SYSTEM: S1, S2 muffled. RESPIRATORY SYSTEM: Breath sounds diminished at the bases. Bilateral scattered rhonchi and crackles. ABDOMEN: Soft, non-tender. No mass palpable. LEGS: No edema. No swelling. NERVOUS SYSTEM: Higher functions as mentioned earlier. Moves all 4 limbs. No focal motor or sensory deficit. LYMPHATICS: No lymph node palpable in neck, axillae or groin. SKIN: No ulcer, rash, bleeding. JOINTS: No active deforming arthropathy. LABS: Labs at this time show WBC 8.8, hemoglobin 11.8, sodium 134, creatinine 1.96 earlier and now 2.45. ASSESSMENT: 1. Acute hypoxic hypercarbic respiratory failure, multifactorial, possibly secondary to congestive heart failure, acute exacerbation, with acute on chronic diastolic dysfunction, ejection fraction 50% to 60%, as well as obesity hypoventilation syndrome, pickwickian syndrome, on BiPAP. 2. Change in mental status, acute metabolic encephalopathy, multifactorial, secondary to above. 3. Acute respiratory acidosis, currently metabolic alkalosis. 4. Renal failure, acute on chronic, with significant prerenal acute tubular necrosis component. 5. Bilateral leg cellulitis, acute on chronic. 6. Anemia of chronic disease. 7. Transverse fracture beyond the base of the fifth toe proximal phalanx recently with slight medial displacement, treated with edmundo tape by Orthopedic Surgery. 8. Super morbid obesity; body mass index of 56.7. 9. Severe gait dysfunction because of above multiple medical issues. 10.Diabetes mellitus, type 2. 11.Hypertension. 12.Hyperlipidemia. 13.Obstructive sleep apnea. 14.History of cellulitis. 15.Remote history of nicotine dependence. 16.History of tetrahydrocannabinol. RECOMMENDATIONS AND DISCUSSION: I recommend to continue current medications, continue with the monitoring, symptomatic treatment. I recommend continued bronchodilators. I would also avoid nephrotoxic medications currently. Broad-spectrum IV antibiotics. PT/OT evaluation. Continue to follow with multiple consultants. Guarded prognosis. Further recommendations to follow. We will monitor the creatinine closely. Once the creatinine is stable in the next 24-48 hours, the patient could be discharged home once cleared by multiple consultants. JERRI / MARISA: [id number] /
--- NOTE | 2019-07-19 20:51 | PN ---
PROGRESS NOTE DATE OF SERVICE: 07/19/2019. REASON FOR FOLLOWUP: Left lower extremity cellulitis. INTERVAL HISTORY: The patient is currently afebrile. The patient has been breathing comfortably on room air. No chest pain or shortness of breath. Occasional cough. No nausea, no vomiting. No abdominal pain. No diarrhea. PHYSICAL EXAMINATION: Blood pressure 101/55 with a pulse of 96, temperature 98.2. He is 96% on 3 L nasal cannula. General description is a middle aged male up in the bed in no distress. Respiratory system: Unlabored breathing with decreased breath sounds at the bases. No wheeze. Heart: S1, S2. Regular rate and rhythm. ABDOMEN: Soft, no tenderness. LABS: Hemoglobin is 11.8, white count 8.8. Creatinine is slightly up to 2.45. Blood culture has been negative. DIAGNOSTIC IMPRESSION AND PLAN: 1. Patient with bilateral lower extremity cellulitis. The patient did have diffuse swelling and redness. Currently on IV cefepime to continue and monitor clinical course closely. 2. Bilateral Athlete's foot. Continue Nystatin cream. MMODL / IJN: [id number] /
[2019-07-19 21:08] LABS: Glucose,Whole Blood 152 mg/dL (75-99)
[2019-07-20] MEDS: INSULIN ASPART (NovoLOG) 100 UNIT/ML VIAL SQ SCH ×5 (00:07→21:32)
[2019-07-20 00:08] LABS: Glucose,Whole Blood 126 mg/dL (75-99)
[2019-07-20] MEDS: HEPARIN SODIUM,PORCINE 5,000 UNIT/ML 1 ML VIAL SQ SCH ×3 (00:10→17:30)
[2019-07-20 04:53] LABS: Calcium 8.5 mg/dL (8.4-10.2)
[2019-07-20 06:05] LABS: Anisocytosis Slight; HCT 41.3 % (39.0-53.0); HGB 11.8 gm/dL (13.0-17.5); Hypochromasia Marked; MCH 22.4 pg (25.0-35.0); MCHC 28.5 g/dL (31.0-37.0); MCV 78.3 fL (80.0-100.0); Mean Platelet Volume 7.4; Microcytosis Slight; Platelet Count 224 k/uL (150-450); Poikilocytosis Slight; RBC 5.27 m/uL (4.30-5.90); RDW 17.6 % (11.5-15.5); WBC 7.8 k/uL (3.8-10.6)
[2019-07-20 06:46] LABS: Eosinophils # (M) 0.39 k/uL (0-0.7); Lymphocytes # (M) 1.87 k/uL (1.0-4.8); Monocytes # (M) 0.31 k/uL (0-1.0); Neutrophils # (M) 5.23 k/uL (1.3-7.7); Neutrophils % (M) 67 %; Nucleated Red Blood Cells 0 /100 WBC (0-0); Total Cells Counted 100
[2019-07-20 06:49] LABS: Polychromasia Present
[2019-07-20 06:50] LABS: Basophilic Stippling Present
[2019-07-20 06:51] LABS: Large Platelets Present
[2019-07-20 07:08] LABS: Glucose,Whole Blood 133 mg/dL (75-99)
[2019-07-20] MEDS: IPRATROPIUM-ALBUTEROL 3 ML NEB INHALATION SCH ×3 (08:01→20:28)
[2019-07-20] MEDS: METOPROLOL TARTRATE 25 MG TAB PO SCH (08:47)
[2019-07-20] MEDS: CEFEPIME 2 GM in SODIUM CHLORIDE 0.9% 100 ML IVPB SCH (08:47)
[2019-07-20] MEDS: PANTOPRAZOLE 40 MG/10 ML VIAL IVP SCH (08:47)
[2019-07-20] MEDS: amLODIPine 5 MG TAB PO SCH (08:47)
[2019-07-20] MEDS: NYSTATIN 100,000 UNIT/GM POWD 15 GM TOPICAL SCH ×2 (08:48→22:06)
[2019-07-20 11:48] LABS: Glucose,Whole Blood 122 mg/dL (75-99)
--- NOTE | 2019-07-20 12:27 | P.PN ---
Subjective Progress Note Date: 07/20/19 Principal diagnosis: Acute hypoxemic and hypercapnic respiratory failure. On 07/17/2019 patient seen in follow-up in intensive care unit, he remains on BiPAP, pressures of 2004 6, and FiO2 of 35%, he is arousable, she is answering simple questions. He is appropriate, he denies any acute distress. No new chest x-ray today, yesterday's chest x-ray has been reviewed, showing similar- appearing pulmonary vascular congestion and enlarged cardio missed on [place] of cardiogenic or cardiogenic fluid overload. Patient remains on Lasix drip, his been diuresing massively, he is produced 12 L of urine last 24 hours, and he is in -9638 and the fluid balance over the last 24 hours. Has been reviewed, showing white blood cell count of 12.1, hemoglobin 12.4, sodium of 138, pot assium is 4.0, chloride is 81, CO2 was 51, BUN of 11 and creatinine 0.57. Lab work is showing significant metabolic alkalosis, likely related to extensive diuresis. Patient is in -8.7 kg over the last 24 hours. Medical coverage is with cefepime and vancomycin for lower extremity cellulitis, fever or chills, blood culture showed no growth. Lower extremities are with minimal redness, no drainage. On 07/18/2019 patient seen in follow-up. On BiPAP support, but his mentation has improved, he is answering questions, he is alert and oriented 3, his been tolerating nasal cannula trials, usually at 15 L, and his maintaining a pulse ox of 90-91%. Continues to diurese, he is maintaining negative fluid balance, he is in -4890 mL over the last 24 hours, fluid volume status is improving, lower extremity edema is improving, significant erythema or warmth to the lower extremities, patient is on cefepime for antibiotic coverage, ID service is following and vancomycin has been discontinued. Lung sounds reveal a few rhonchi, no significant wheezes, patient has been given several doses of Diamox, and today's blood work has been reviewed showing improvement in patient's metabolic alkalosis, with a CO2 of 32, down from 51 on yesterday's labs, serum sodium is 135, potassium is 4.6, chloride is 95, blood gas was obtained this morning, on BiPAP support, and showed a pO2 of 80, pCO2 of 7 due to, and pH of 7.27, improvement from yesterday's blood gas. no Fever or chills, hemodynamically stable. On 07/19/2019, the patient remains in the intensive care unit. He is awake and alert and following commands. He remains on oxygen and currently is on 3 L of oxygen by nasal cannula. Note that his oxidation is improved from yesterday as the patient was as high as 15 L of oxygen. The patient unfortunately developed an acute kidney injury. On morning blood work, the creatinine is up to 1.9 and the patient got urine output. Based on this, I gave him a liter of bolus immediately and I asked him to increase his fluid intake. The patient is currently off diuretics. I stopped Aldactone. I also discontinued the lisinopril. He has showed improvement in his urine output following this inter vention. A repeat creatinine will be obtained in few hours times. Meanwhile, I was able to retrieve the patient's polysomnography report and the patient had a sleep study that was done on 08/31/2017 through [facility] and based on the polysomnography results, the patient's very severe obstructive sleep apnea with an AHI of 96.2 with severe nocturnal oxygen desaturation which was as low as 72%. Following that the patient was given CPAP titration. He failed CPAP and ultimately was titrated to a BiPAP pressure of 18/14 cm of water. The patient did not receive his machine back then for reasons that is not clear to me and probably this was related to his compliance. Is very important for this patient to have his BiPAP machine at time of discharge knowing that he has severe obstructive sleep apnea and chronic hypercapnic respiratory failure. Mental status is improved. No nausea. No vomiting. No abdominal pain. His tolerating his diet. No chest pain. No significant cough or sputum production. The patient is seen today 04/19/2018 in follow-up in the intensive care unit. He is currently sitting up in a chair at the bedside. Awake and alert in no acute distress. Breathing much easier today as compared to yesterday. Was only on the BiPAP a couple of hours last night. Currently down to 4 L high flow nasal cannula and maintaining good O2 saturations in the 90s. He's been afebrile. Hemodynamically stable. Blood and urine cultures reveal no growth. White count 7.8. Hemoglobin 11.8. Creatinine 1.28. Currently on Augmentin. Continued on diuretics. Heparin for DVT prophylaxis. Patient does have an AHI of 96 with nocturnal desaturations. He is going to be qualified for an AVAPS device to use at home. Objective - Vital Signs Vital signs: Vital Signs Temp 97.9 F 07/20/19 08:00 Pulse 102 H 07/20/19 08:18 Resp 24 07/20/19 08:00 BP 130/74 07/20/19 08:00 Pulse Ox 96 07/20/19 08:01 Intake & Output 07/19/19 07/20/19 07/20/19 18:59 06:59 18:59 Intake Total 3300 600 150 Output Total 195 800 300 Balance 3105 -200 -150 Weight 195.2 kg 195.2 kg Intake: IV 1100 600 150 0.9 KVO 600 150 Cefepime 2 gm In Sodium 100 Chloride 0.9% 100 ml @ 200 mls/hr IVPB Q12HR CORI Rx#:[id number] Sodium Chloride 0.9% 1, 1000 000 ml @ 999 mls/hr IV . Q1H1M ONE Rx#:[id number] Intake, IV Titration 500 Amount Sodium Chloride 0.9% 1, 500 000 ml @ 999 mls/hr IV . Q1H1M ONE Rx#:[id number] Oral 1700 Output: Urine 195 800 300 Other: Voiding Method Indwelling Catheter Indwelling Catheter Indwelling Catheter # Voids 2 - Exam GENERAL EXAM: Alert, pleasant, obese 39-year-old woman, on 4L of oxygen by nasal cannula with a pulse ox of above 90% HEAD: Normocephalic/atraumatic. EYES: Normal reaction of pupils, equal size. Conjunctiva pink, sclera white. NOSE: Clear with pink turbinates. THROAT: No erythema or exudates. NECK: No masses, no JVD, no thyroid enlargement, no adenopathy. CHEST: No chest wall deformity. Symmetrical expansion. LUNGS: Equal air entry with no crackles, wheeze, rhonchi or dullness. CVS: Regular rate and rhythm, normal S1 and S2, no gallops, no murmurs, no rubs ABDOMEN: Soft, nontender. No hepatosplenomegaly, normal bowel sounds, no guarding or rigidity. EXTREMITIES: No clubbing, lower extremity edema, minimal redness, no drainage, changes of chronic venous stasis and lower extremities no cyanosis, 2+ pulses and upper and lower extremities. MUSCULOSKELETAL: Muscle strength and tone normal. SPINE: No scoliosis or deformity SKIN: No rashes CENTRAL NERVOUS SYSTEM: No focal deficits, tone is normal in all 4 extremities. PSYCHIATRIC: Alert and oriented -3. Appropriate affect. Intact judgment and insight. - Labs CBC & Chem 7: 07/20/19 04:31 07/20/19 04:31 Labs: Abnormal Lab Results - Last 24 Hours (Table) 07/19/19 07/19/19 07/19/19 Range/Units 14:04 17:06 21:07 Hgb (13.0-17.5) gm/dL MCV (80.0-100.0) fL MCH (25.0-35.0) pg MCHC (31.0-37.0) g/dL RDW (11.5-15.5) % Sodium 133 L (137-145) mmol/L Chloride 94 L (98-107) mmol/L Carbon Dioxide (22-30) mmol/L BUN 60 H (9-20) mg/dL Creatinine 2.45 H (0.66-1.25) mg/dL Glucose 125 H (74-99) mg/dL POC Glucose (mg/dL) 120 H 152 H (75-99) mg/dL 07/20/19 07/20/19 07/20/19 Range/Units 00:06 04:31 04:31 Hgb 11.8 L (13.0-17.5) gm/dL MCV 78.3 L (80.0-100.0) fL MCH 22.4 L (25.0-35.0) pg MCHC 28.5 L (31.0-37.0) g/dL RDW 17.6 H (11.5-15.5) % Sodium 134 L (137-145) mmol/L Chloride (98-107) mmol/L Carbon Dioxide 31 H (22-30) mmol/L BUN 59 H (9-20) mg/dL Creatinine 1.28 H (0.66-1.25) mg/dL Glucose 118 H (74-99) mg/dL POC Glucose (mg/dL) 126 H (75-99) mg/dL 07/20/19 07/20/19 Range/Units 07:06 11:46 Hgb (13.0-17.5) gm/dL MCV (80.0-100.0) fL MCH (25.0-35.0) pg MCHC (31.0-37.0) g/dL RDW (11.5-15.5) % Sodium (137-145) mmol/L Chloride (98-107) mmol/L Carbon Dioxide (22-30) mmol/L BUN (9-20) mg/dL Creatinine (0.66-1.25) mg/dL Glucose (74-99) mg/dL POC Glucose (mg/dL) 133 H 122 H (75-99) mg/dL Microbiology - Last 24 Hours (Table) 07/14/19 13:35 Blood Culture - Preliminary Blood No Growth after 120 hours 07/15/19 13:00 Urine Culture - Final Urine,Catheterized Assessment and Plan Assessment: #1. Acute hypoxemic and hypercapnic respiratory failure related to fluid overload, in a patient with probable sleep apnea syndrome, pickwickian syndrome, and possible underlying chronic lung disease, possibly COPD he had the patient was in acute hypoxic and hypercapnic respiratory failure. In terms of his hypoxemia, his oxidation is improved and the patient is currently on 3 L of oxygen by nasal cannula. He was also treated with BiPAP for respiratory support throughout his current hospitalization. Currently is on 4 L and he is ambulating. He'll be set up for an average volume assured pressure support (AVAPS) device #2. Cellulitis of the lower extremities, improving and the patient had signif icant improvement in lower extremity edema #3. Metabolic alkalosis, likely related to excessive diuresis #4. Morbid obesity BMI 56 kg/m #5. Severe DORYS with an AHI of 96.2 and the patient was titrated to a BiPAP pressure of 18/14 cm of water. #6. Benign essential hypertension #7. Diabetes mellitus #8. Previous history of tobacco use, and current history of marijuana use #9. History of left foot proximal phalanx of the fifth toe fracture #10 acute kidney injury with a creatinine of 1.9, probably related to aggressive diuresis, diuretics and aggie inhibitors. Plan: The patient was seen and evaluated by Dr. Felipe. He is currently stable from the pulmonary and critical care standpoint. He can be transferred out of the ICU today. He did qualify for home AVAPS machine which will be set up by Dr. Felipe. He'll follow-up in our office post discharge for further evaluation. We will continue with the current treatment plan. Increase his activity as tolerated. We'll continue to follow. I, the cosigning physician, performed a history & physical examination of the patient. Lungs sounds are clear. Maintaining good O2 saturations in the 90s on 4 L high flow nasal cannula. I discussed the assessment and plan of care with my nurse practitioner, Nkechi Mackay. I attest to the above note as dictated by her.
[2019-07-20] MEDS: AMOXIC-POT CLAV 875-125MG 1 EACH TAB PO SCH ×2 (13:54→22:05)
--- NOTE | 2019-07-20 14:51 | PN ---
PROGRESS NOTE DATE OF SERVICE: 07/20/2019. This 39-year-old gentleman who was admitted with acute hypoxic hypercarbic respiratory failure possibly secondary to CHF, acute exacerbation, is being closely monitored at this time. The patient also has obesity hypoventilation syndrome. The patient is still monitored in ICU at this time. Past medical history reviewed. REVIEW OF SYSTEMS: CARDIOVASCULAR SYSTEM: No angina, palpitations. RESPIRATORY SYSTEM: As mentioned earlier. GI: As mentioned earlier. : No dysuria or retention. NERVOUS SYSTEM: No numbness, weakness. CURRENT MEDICATIONS: Reviewed. They include: 1. Tylenol 500 mg q.6 p.r.n. 2. DuoNeb q.i.d. and p.r.n. 3. Norvasc 5 mg p.o. daily. 4. Augmentin 875 mg one p.o. b.i.d. 5. Lasix 40 mg p.o. daily. 6. Heparin 5000 units subcutaneously q.8. 7. Apresoline 10 mg IV q.8. 8. NovoLog scale. 9. Lopressor 25 mg p.o. b.i.d. 10.Narcan. 11.Mycostatin. 12.Protonix. PHYSICAL EXAMINATION: Patient is alert and oriented x3. Pulse is 103, blood pressure 130/74, respiration 24, temperature 97.9, pulse ox 94% on 3 L. HEENT: Conjunctivae normal. NECK: No jugular venous distention. CARDIOVASCULAR SYSTEM: S1, S2 muffled. RESPIRATORY SYSTEM: Breath sounds diminished at the bases. A few scattered rhonchi and crackles. ABDOMEN: Soft, non-tender. No mass palpable. LEGS: Bilateral leg cellulitis and edema. NERVOUS SYSTEM: No focal deficit. LABS: WBC 7.8, hemoglobin 11.8. Sodium 134, creatinine 1.28. CO2 is improved. ASSESSMENT: 1. Acute hypoxic hypercarbic respiratory failure, multifactorial, possibly secondary to congestive heart failure, acute exacerbation, with acute on chronic diastolic dysfunction, ejection fraction 50% to 60%, as well as obesity hypoventilation syndrome, pickwickian syndrome, on BiPAP. 2. Change in mental status, acute metabolic encephalopathy, multifactorial, secondary to above. 3. Acute respiratory acidosis; currently metabolic alkalosis. 4. Renal failure, acute on chronic, with significant prerenal acute tubular necrosis component. 5. Bilateral leg cellulitis, acute on chronic. 6. Anemia of chronic disease. 7. Transverse fracture beyond the base of the fifth toe proximal phalanx recently with slight medial displacement, treated with edmundo tape by Orthopedic Surgery. 8. Super morbid obesity; body mass index of 56.7. 9. Severe gait dysfunction because of above-mentioned multiple medical issues. 10.Diabetes mellitus, type 2. 11.Hypertension. 12.Hyperlipidemia. 13.Obstructive sleep apnea. 14.History of cellulitis. 15.Remote history of nicotine dependence. 16.History of tetrahydrocannabinol. RECOMMENDATIONS AND DISCUSSION: I recommend to continue current medications, continue with the monitoring, symptomatic treatment. Otherwise at this time I would recommend continuing to monitor fluid/electrolyte balance closely. The patient has been started on a small dose of diuretics at this time. We will continue to monitor. Otherwise, continue with the antibiotics. The cultures are negative so far. Closely follow with multiple consultants. Further recommendations to follow. MMHERIL / GENNAN: [id number] /
--- NOTE | 2019-07-20 16:10 | PN ---
PROGRESS NOTE This patient was admitted with acute hypercapnic respiratory failure and fluid overload. The patient developed acute on chronic renal failure secondary to over- diuresis. Patient seems to be doing better. Denies any shortness of breath or chest pain. Heart rate is 100 per minute. Oxygen saturation is 96. The patient remains mildly tachycardic. First and second heart sounds are normal. Lungs are clear to auscultation and percussion. Patient's creatinine now is 1.28. His urine output is improved. The patient was started on Lasix 40 mg p.o. daily by Dr. Felipe. I will increase the dose of Lopressor to 50 mg b.i.d. in view of the patient's persistent sinus tachycardia. MMODL / IJN: [id number] /
[2019-07-20 16:46] LABS: Glucose,Whole Blood 110 mg/dL (75-99)
--- NOTE | 2019-07-20 17:34 | PN ---
PROGRESS NOTE DATE OF SERVICE: 07/20/2019 REASON FOR FOLLOWUP: Bilateral lower extremity cellulitis. INTERVAL HISTORY: The patient is currently afebrile. The patient has been breathing comfortably. Denies having any chest pain or any cough. No nausea, no vomiting and no abdominal pain. PHYSICAL EXAMINATION: General description is a middle-aged male lying in bed in no distress. RESPIRATORY SYSTEM: Unlabored breathing with decreased breath sounds at the base. No wheeze. HEART: S1, S2. Regular rate and rhythm. ABDOMEN: Soft. No tenderness. LEGS: Swelling has improved currently, with no open wound or any drainage. LABS: Hemoglobin is 11.8, white count 7.8 with a BUN of 59, creatinine 1.28. Blood culture negative. Urine is negative. DIAGNOSTIC IMPRESSION AND PLAN: Patient with bilateral lower extremity cellulitis in this patient who did have diffuse swelling and redness with a concern for cellulitis. The patient has shown overall clinical improvement. Antibiotic has been switched over to Augmentin; to continue for about a week while monitoring his clinical course closely. Continue with supportive care. MMODL / IJN: [id number] /
[2019-07-20 21:15] LABS: Glucose,Whole Blood 131 mg/dL (75-99)
[2019-07-20] MEDS: METOPROLOL TARTRATE 50 MG TAB PO SCH (22:08)
[2019-07-20] MEDS: ACETAMINOPHEN TAB 500 MG TAB PO PRN (22:54)
[2019-07-21] MEDS: HEPARIN SODIUM,PORCINE 5,000 UNIT/ML 1 ML VIAL SQ SCH ×3 (00:08→15:25)
[2019-07-21 06:24] LABS: African American GFR (CKD) >90 (>60 ml/min/1.73 sqM); Anion Gap 2 mmol/L; Blood Urea Nitrogen 26 mg/dL (9-20); Calcium 8.6 mg/dL (8.4-10.2); Carbon Dioxide 36 mmol/L (22-30); Chloride 100 mmol/L (98-107); Glucose 111 mg/dL (74-99); Non-African American GFR(CKD) >90 (>60 ml/min/1.73 sqM); Potassium 5.2 mmol/L (3.5-5.1); Sodium 138 mmol/L (137-145)
[2019-07-21 06:47] LABS: Glucose,Whole Blood 117 mg/dL (75-99)
[2019-07-21] MEDS: INSULIN ASPART (NovoLOG) 100 UNIT/ML VIAL SQ SCH ×4 (06:50→20:53)
[2019-07-21] MEDS: IPRATROPIUM-ALBUTEROL 3 ML NEB INHALATION SCH (07:45)
[2019-07-21] MEDS: AMOXIC-POT CLAV 875-125MG 1 EACH TAB PO SCH ×2 (08:42→21:04)
[2019-07-21] MEDS: amLODIPine 5 MG TAB PO SCH (08:42)
[2019-07-21] MEDS: METOPROLOL TARTRATE 50 MG TAB PO SCH ×2 (08:43→21:04)
[2019-07-21] MEDS: PANTOPRAZOLE 40 MG/10 ML VIAL IVP SCH (08:43)
[2019-07-21] MEDS: FUROSEMIDE 40 MG TAB PO SCH (08:43)
[2019-07-21] MEDS: NYSTATIN 100,000 UNIT/GM POWD 15 GM TOPICAL SCH ×2 (08:43→21:04)
[2019-07-21 11:18] LABS: Glucose,Whole Blood 118 mg/dL (75-99)
[2019-07-21 11:51] LABS: Glucose,Whole Blood 109 mg/dL (75-99)
[2019-07-21] MEDS: ACETAMINOPHEN TAB 500 MG TAB PO PRN ×2 (11:53→17:37)
--- NOTE | 2019-07-21 13:22 | P.PN ---
Subjective Progress Note Date: 07/21/19 On 07/17/2019 patient seen in follow-up in intensive care unit, he remains on BiPAP, pressures of 2004 6, and FiO2 of 35%, he is arousable, she is answering simple questions. He is appropriate, he denies any acute distress. No new chest x-ray today, yesterday's chest x-ray has been reviewed, showing similar- appearing pulmonary vascular congestion and enlarged cardio missed on S[place] of cardiogenic or cardiogenic fluid overload. Patient remains on Lasix drip, his been diuresing massively, he is produced 12 L of urine last 24 hours, and he is in -9638 and the fluid balance over the last 24 hours. Has been reviewed, showing white blood cell count of 12.1, hemoglobin 12.4, sodium of 138, po tassium is 4.0, chloride is 81, CO2 was 51, BUN of 11 and creatinine 0.57. Lab work is showing significant metabolic alkalosis, likely related to extensive diuresis. Patient is in -8.7 kg over the last 24 hours. Medical coverage is with cefepime and vancomycin for lower extremity cellulitis, fever or chills, blood culture showed no growth. Lower extremities are with minimal redness, no drainage. On 07/18/2019 patient seen in follow-up. On BiPAP support, but his mentation has improved, he is answering questions, he is alert and oriented 3, his been tolerating nasal cannula trials, usually at 15 L, and his maintaining a pulse ox of 90-91%. Continues to diurese, he is maintaining negative fluid balance, he is in -4890 mL over the last 24 hours, fluid volume status is improving, lower e xtremity edema is improving, significant erythema or warmth to the lower extremities, patient is on cefepime for antibiotic coverage, ID service is following and vancomycin has been discontinued. Lung sounds reveal a few rhonchi, no significant wheezes, patient has been given several doses of Diamox, and today's blood work has been reviewed showing improvement in patient's metabolic alkalosis, with a CO2 of 32, down from 51 on yesterday's labs, serum sodium is 135, potassium is 4.6, chloride is 95, blood gas was obtained this morning, on BiPAP support, and showed a pO2 of 80, pCO2 of 7 due to, and pH of 7.27, improvement from yesterday's blood gas. no Fever or chills, hemodynamically stable. On 07/19/2019, the patient remains in the intensive care unit. He is awake and alert and following commands. He remains on oxygen and currently is on 3 L of oxygen by nasal cannula. Note that his oxidation is improved from yesterday as the patient was as high as 15 L of oxygen. The patient unfortunately developed an acute kidney injury. On morning blood work, the creatinine is up to 1.9 and the patient got urine output. Based on this, I gave him a liter of bolus immediately and I asked him to increase his fluid intake. The patient is currently off diuretics. I stopped Aldactone. I also discontinued the lisinopril. He has showed improvement in his urine output following this inte rvention. A repeat creatinine will be obtained in few hours times. Meanwhile, I was able to retrieve the patient's polysomnography report and the patient had a sleep study that was done on 08/31/2017 through [facility] and based on the polysomnography results, the patient's very severe obstructive sleep apnea with an AHI of 96.2 with severe nocturnal oxygen desaturation which was as low as 72%. Following that the patient was given CPAP titration. He failed CPAP and ultimately was titrated to a BiPAP pressure of 18/14 cm of water. The patient did not receive his machine back then for reasons that is not clear to me and probably this was related to his compliance. Is very important for this patient to have his BiPAP machine at time of discharge knowing that he has severe obstructive sleep apnea and chronic hypercapnic respiratory failure. Mental status is improved. No nausea. No vomiting. No abdominal pain. His tolerating his diet. No chest pain. No significant cough or sputum production. The patient is seen today 04/19/2018 in follow-up in the intensive care unit. He is currently sitting up in a chair at the bedside. Awake and alert in no acute distress. Breathing much easier today as compared to yesterday. Was only on the BiPAP a couple of hours last night. Currently down to 4 L high flow nasal cannula and maintaining good O2 saturations in the 90s. He's been afebrile. Hemodynamically stable. Blood and urine cultures reveal no growth. White count 7.8. Hemoglobin 11.8. Creatinine 1.28. Currently on Augmentin. Continued on diuretics. Heparin for DVT prophylaxis. Patient does have an AHI of 96 with nocturnal desaturations. He is going to be qualified for an AVAPS device to use at home. On 07/21/2019, I'm seeing this patient for a follow-up. Is doing extremely well. Pulse ox on room air is 93%. No chest pain. No shortness of breath and is still diuresing. Function continues to improve. When the process of planning this patient's discharge and in the process he will need a BiPAP machine which were working got in addition to the hospital bed and possibly oxygen. He is currently on 40 mg of Lasix on a daily basis. Serum bicarbs up to 36. No chest pain. No nausea or vomiting. He has started to do some limited ambulation. Lower extremity cellulitis also improving. The patient is currently on oral Augmentin. Objective - Vital Signs Vital signs: Vital Signs Temp 98.1 F 07/21/19 12:00 Pulse 92 07/21/19 12:00 Resp 17 07/21/19 12:00 BP 124/68 07/21/19 12:00 Pulse Ox 98 07/21/19 12:00 Intake & Output 07/20/19 07/21/19 07/21/19 18:59 06:59 18:59 Intake Total 150 400 Output Total 955 508 7106 Balance -350 -900 -1600 Weight 195.2 kg 193.1 kg Intake: IV 150 0.9 KVO 150 Oral 400 Output: Urine 544 100 3108 Other: Voiding Method Indwelling Catheter Toilet Urinal # Voids 4 - Exam GENERAL EXAM: Alert, pleasant, obese 39-year-old woman, on 4L of oxygen by nasal cannula with a pulse ox of above 90% HEAD: Normocephalic/atraumatic. EYES: Normal reaction of pupils, equal size. Conjunctiva pink, sclera white. NOSE: Clear with pink turbinates. THROAT: No erythema or exudates. NECK: No masses, no JVD, no thyroid enlargement, no adenopathy. CHEST: No chest wall deformity. Symmetrical expansion. LUNGS: Equal air entry with no crackles, wheeze, rhonchi or dullness. CVS: Regular rate and rhythm, normal S1 and S2, no gallops, no murmurs, no rubs ABDOMEN: Soft, nontender. No hepatosplenomegaly, normal bowel sounds, no guarding or rigidity. EXTREMITIES: No clubbing, lower extremity edema, minimal redness, no drainage, changes of chronic venous stasis and lower extremities no cyanosis, 2+ pulses and upper and lower extremities. MUSCULOSKELETAL: Muscle strength and tone normal. SPINE: No scoliosis or deformity SKIN: No rashes CENTRAL NERVOUS SYSTEM: No focal deficits, tone is normal in all 4 extremities. PSYCHIATRIC: Alert and oriented -3. Appropriate affect. Intact judgment and insight. - Labs CBC & Chem 7: 07/20/19 04:31 07/21/19 05:39 Labs: Abnormal Lab Results - Last 24 Hours (Table) 07/20/19 07/20/19 07/21/19 Range/Units 16:45 21:12 05:39 Potassium 5.2 H (3.5-5.1) mmol/L Carbon Dioxide 36 H (22-30) mmol/L BUN 26 H (9-20) mg/dL Glucose 111 H (74-99) mg/dL POC Glucose (mg/dL) 110 H 131 H (75-99) mg/dL 07/21/19 07/21/19 07/21/19 Range/Units 06:35 11:17 11:49 Potassium (3.5-5.1) mmol/L Carbon Dioxide (22-30) mmol/L BUN (9-20) mg/dL Glucose (74-99) mg/dL POC Glucose (mg/dL) 117 H 118 H 109 H (75-99) mg/dL Microbiology - Last 24 Hours (Table) 07/14/19 13:35 Blood Culture - Final Blood No Growth after 144 hours Assessment and Plan Plan: #1. Acute hypoxemic and hypercapnic respiratory failure related to fluid overload, in a patient with probable sleep apnea syndrome, pickwickian syndrome, and possible underlying chronic lung disease, possibly COPD he had the patient was in acute hypoxic and hypercapnic respiratory failure. In terms of his hypoxemia, his oxidation is improved and the patient is currently on 3 L of oxygen by nasal cannula. He was also treated with BiPAP for respiratory support throughout his current hospitalization. The patient improved considerably and currently is on room air oxygen with a pulse ox of 93%. He is still demo nstrating exertional oxygen desaturation. He is awaiting his home VPAP automatic unit which was ordered to him through [facility]. #2. Cellulitis of the lower extremities, improving and the patient had significant improvement in lower extremity edema, and the patient is currently on oral Augmentin #3. Metabolic alkalosis, likely related to excessive diuresis, serum bicarbonate 36 #4. Morbid obesity BMI 56 kg/m #5. Severe DORYS with an AHI of 96.2 and the patient was titrated to a BiPAP pr essure of 18/14 cm of water. #6. Benign essential hypertension #7. Diabetes mellitus #8. Previous history of tobacco use, and current history of marijuana use #9. History of left foot proximal phalanx of the fifth toe fracture #10 acute kidney injury, recovered Plan Continue oral Lasix 40 mg by mouth daily. Completed the course of Augmentin. Metoprolol 50 mg by mouth twice a day for rate control as the patient is a mild component of sinus tachycardia. Hospital bed. Home VPAP automatic machine. Home hospital bed. Discharge planning is in progress. We'll continue to follow. Feeling much better. Is awake and alert. No signs of any CO2 narcosis.
--- NOTE | 2019-07-21 13:31 | PN ---
PROGRESS NOTE This patient has COPD and sleep apnea. He is feeling much better. Denies any shortness of breath, orthopnea or PND. Patient becomes tachycardic with activities. Blood pressure remains stable. First and second heart sounds are normal. No significant wheezing is noted. The patient's creatinine is now normalized 2.73. Continue the current medications. MMODL / IJN: [id number] /
[2019-07-21 16:34] LABS: Glucose,Whole Blood 140 mg/dL (75-99)
[2019-07-21 20:41] LABS: Glucose,Whole Blood 130 mg/dL (75-99)
--- NOTE | 2019-07-21 20:49 | PN ---
PROGRESS NOTE DATE OF SERVICE: 07/21/2019. This 39-year-old gentleman admitted with acute hypoxic respiratory failure possibly secondary to multifocal CHF acute exacerbation as well as Pickwickian syndrome, is being closely monitored. The patient is on BiPAP at this time. The patient also has some metabolic alkalosis. Subsequently small dose diuretics reinstated at this time. Multiple consultants are following the patient closely. The patient also has cellulitis and the cultures are negative so far. The patient has empiric IV antibiotics. The renal function is being well maintained. Potassium is 5.2. PAST MEDICAL HISTORY: Reviewed. REVIEW OF SYSTEMS: CARDIOVASCULAR: No angina or palpitations. RESPIRATORY: As mentioned earlier. GI no nausea or vomiting. no dysuria. NERVOUS SYSTEM: No numbness or weakness. ALLERGY/IMMUNOLOGY: No asthma or hayfever. MUSCULOSKELETAL: As mentioned earlier. CURRENT MEDICATIONS: Reviewed and include: 1. Tylenol 500 mg q.6h p.r.n. 2. DuoNeb q.i.d. and p.r.n. 3. Norvasc 5 mg p.o. daily. 4. Augmentin 875 mg p.o. b.i.d. 5. Lasix 40 mg p.o. daily. 6. Heparin 5000 subcu q.8h. 7. Apresoline 10 mg IV q.8h p.r.n. 8. Lopressor 50 mg p.o. b.i.d. 9. Narcan p.r.n. 10.Mycostatin p.r.n. 11.Protonix 40 mg IV daily. PHYSICAL EXAMINATION: Alert and oriented times three. Pulse 92, blood pressure 124/68, respirations 17, temperature 98.1, pulse ox 98% on 4 L. HEENT: Conjunctivae normal. NECK: No JVD. CARDIOVASCULAR: S1, S2. RESPIRATORY: Breath sounds diminished at the bases. A few scattered rhonchi and crackles. ABDOMEN: Soft, obese, nontender. LEGS: Bilateral leg cellulitis. NERVOUS SYSTEM: No focal deficits. LABS: WBC 7.8, hemoglobin 11.8. Other labs are sodium 138, potassium 5.2. ASSESSMENT: 1. Acute hypoxic hypercarbic respiratory failure, multifactorial, possibly secondary to congestive heart failure, acute exacerbation with acute on chronic diastolic dysfunction, ejection fraction 55-60 percent as well as obesity hypoventilation syndrome, Pickwickian syndrome on BiPAP. 2. Change in mental status, acute metabolic encephalopathy multifactorial secondary to above. 3. Acute respiratory acidosis; currently metabolic alkalosis, improving. 4. Renal failure, acute on chronic with significant prerenal acute tubular necrosis component. 5. Bilateral leg cellulitis, acute on chronic. 6. Anemia of chronic disease. 7. Transverse fracture beyond the base of the 5th toe proximal phalanx recently with slight medial displacement treated with edmundo tape by Orthopedic surgery. 8. Super morbid obesity; body mass index of 56.7. 9. Severe gait dysfunction because of above mentioned multiple medical issues. 10.Diabetes mellitus type 2. 11.Hypertension. 12.Hyperlipidemia. 13.Obstructive sleep apnea. 14.History of cellulitis. 15.Remote history of nicotine dependence. 16.History of THC. RECOMMENDATIONS AND DISCUSSION: Recommend to continue current medication, continue to monitor. Symptomatic treatment. Otherwise at this time, I recommend continue with current medications. Continue with empiric antibiotics. Continue the rest of medications. Continue small dose of Lasix. Otherwise, DVT prophylaxis and closely monitor. PT/OT evaluation. Once the patient is improving, the plan will be to send the patient home. Further recommendations to follow. MMODL / IJN: [id number] /
[2019-07-22] MEDS: HEPARIN SODIUM,PORCINE 5,000 UNIT/ML 1 ML VIAL SQ SCH ×3 (00:27→15:14)
[2019-07-22] MEDS: ACETAMINOPHEN TAB 500 MG TAB PO PRN ×3 (05:59→17:37)
[2019-07-22 06:26] LABS: African American GFR (CKD) >90 (>60 ml/min/1.73 sqM); Anion Gap 7 mmol/L; Blood Urea Nitrogen 17 mg/dL (9-20); Calcium 8.2 mg/dL (8.4-10.2); Carbon Dioxide 36 mmol/L (22-30); Chloride 93 mmol/L (98-107); Glucose 110 mg/dL (74-99); Non-African American GFR(CKD) >90 (>60 ml/min/1.73 sqM); Sodium 136 mmol/L (137-145)
[2019-07-22 06:31] LABS: Potassium 5.2 mmol/L (3.5-5.1)
[2019-07-22 06:48] LABS: Glucose,Whole Blood 118 mg/dL (75-99)
[2019-07-22] MEDS: INSULIN ASPART (NovoLOG) 100 UNIT/ML VIAL SQ SCH ×4 (06:48→21:47)
[2019-07-22] MEDS: IPRATROPIUM-ALBUTEROL 3 ML NEB INHALATION PRN ×2 (08:16→19:16)
[2019-07-22 08:24] LABS: Anisocytosis Slight; HGB 12.1 gm/dL (13.0-17.5); Hypochromasia Marked; MCHC 28.9 g/dL (31.0-37.0); MCV 79.5 fL (80.0-100.0); Mean Platelet Volume 8.8; Microcytosis Slight; Platelet Count 241 k/uL (150-450); RBC 5.28 m/uL (4.30-5.90); RDW 17.2 % (11.5-15.5); WBC 8.4 k/uL (3.8-10.6)
[2019-07-22] MEDS: amLODIPine 5 MG TAB PO SCH (09:11)
[2019-07-22] MEDS: METOPROLOL TARTRATE 50 MG TAB PO SCH ×2 (09:11→21:47)
[2019-07-22] MEDS: AMOXIC-POT CLAV 875-125MG 1 EACH TAB PO SCH ×2 (09:12→21:47)
[2019-07-22] MEDS: PANTOPRAZOLE 40 MG/10 ML VIAL IVP SCH (09:12)
[2019-07-22] MEDS: FUROSEMIDE 40 MG TAB PO SCH (09:12)
[2019-07-22] MEDS: NYSTATIN 100,000 UNIT/GM POWD 15 GM TOPICAL SCH ×2 (09:13→21:47)
[2019-07-22 10:38] LABS: Band Neutrophils % 1 %; Eosinophils # (M) 0.17 k/uL (0-0.7); Monocytes # (M) 1.43 k/uL (0-1.0); Neutrophils % (M) 61 %; Nucleated Red Blood Cells 0 /100 WBC (0-0); Total Cells Counted 100
[2019-07-22 11:39] LABS: Glucose,Whole Blood 135 mg/dL (75-99)
--- NOTE | 2019-07-22 11:57 | P.PN ---
Subjective Progress Note Date: 07/22/19 On 07/17/2019 patient seen in follow-up in intensive care unit, he remains on BiPAP, pressures of 2004 6, and FiO2 of 35%, he is arousable, she is answering simple questions. He is appropriate, he denies any acute distress. No new chest x-ray today, yesterday's chest x-ray has been reviewed, showing similar- appearing pulmonary vascular congestion and enlarged cardio missed on [place] of cardiogenic or cardiogenic fluid overload. Patient remains on Lasix drip, his been diuresing massively, he is produced 12 L of urine last 24 hours, and he is in -9638 and the fluid balance over the last 24 hours. Has been reviewed, showing white blood cell count of 12.1, hemoglobin 12.4, sodium of 138, po tassium is 4.0, chloride is 81, CO2 was 51, BUN of 11 and creatinine 0.57. Lab work is showing significant metabolic alkalosis, likely related to extensive diuresis. Patient is in -8.7 kg over the last 24 hours. Medical coverage is with cefepime and vancomycin for lower extremity cellulitis, fever or chills, blood culture showed no growth. Lower extremities are with minimal redness, no drainage. On 07/18/2019 patient seen in follow-up. On BiPAP support, but his mentation has improved, he is answering questions, he is alert and oriented 3, his been tolerating nasal cannula trials, usually at 15 L, and his maintaining a pulse ox of 90-91%. Continues to diurese, he is maintaining negative fluid balance, he is in -4890 mL over the last 24 hours, fluid volume status is improving, lower e xtremity edema is improving, significant erythema or warmth to the lower extremities, patient is on cefepime for antibiotic coverage, ID service is following and vancomycin has been discontinued. Lung sounds reveal a few rhonchi, no significant wheezes, patient has been given several doses of Diamox, and today's blood work has been reviewed showing improvement in patient's metabolic alkalosis, with a CO2 of 32, down from 51 on yesterday's labs, serum sodium is 135, potassium is 4.6, chloride is 95, blood gas was obtained this morning, on BiPAP support, and showed a pO2 of 80, pCO2 of 7 due to, and pH of 7.27, improvement from yesterday's blood gas. no Fever or chills, hemodynamically stable. On 07/19/2019, the patient remains in the intensive care unit. He is awake and alert and following commands. He remains on oxygen and currently is on 3 L of oxygen by nasal cannula. Note that his oxidation is improved from yesterday as the patient was as high as 15 L of oxygen. The patient unfortunately developed an acute kidney injury. On morning blood work, the creatinine is up to 1.9 and the patient got urine output. Based on this, I gave him a liter of bolus immediately and I asked him to increase his fluid intake. The patient is currently off diuretics. I stopped Aldactone. I also discontinued the lisinopril. He has showed improvement in his urine output following this inte rvention. A repeat creatinine will be obtained in few hours times. Meanwhile, I was able to retrieve the patient's polysomnography report and the patient had a sleep study that was done on 08/31/2017 through [facility] and based on the polysomnography results, the patient's very severe obstructive sleep apnea with an AHI of 96.2 with severe nocturnal oxygen desaturation which was as low as 72%. Following that the patient was given CPAP titration. He failed CPAP and ultimately was titrated to a BiPAP pressure of 18/14 cm of water. The patient did not receive his machine back then for reasons that is not clear to me and probably this was related to his compliance. Is very important for this patient to have his BiPAP machine at time of discharge knowing that he has severe obstructive sleep apnea and chronic hypercapnic respiratory failure. Mental status is improved. No nausea. No vomiting. No abdominal pain. His tolerating his diet. No chest pain. No significant cough or sputum production. The patient is seen today 04/19/2018 in follow-up in the intensive care unit. He is currently sitting up in a chair at the bedside. Awake and alert in no acute distress. Breathing much easier today as compared to yesterday. Was only on the BiPAP a couple of hours last night. Currently down to 4 L high flow nasal cannula and maintaining good O2 saturations in the 90s. He's been afebrile. Hemodynamically stable. Blood and urine cultures reveal no growth. White count 7.8. Hemoglobin 11.8. Creatinine 1.28. Currently on Augmentin. Continued on diuretics. Heparin for DVT prophylaxis. Patient does have an AHI of 96 with nocturnal desaturations. He is going to be qualified for an AVAPS device to use at home. On 07/21/2019, I'm seeing this patient for a follow-up. Is doing extremely well. Pulse ox on room air is 93%. No chest pain. No shortness of breath and is still diuresing. Function continues to improve. When the process of planning this patient's discharge and in the process he will need a BiPAP machine which were working got in addition to the hospital bed and possibly oxygen. He is currently on 40 mg of Lasix on a daily basis. Serum bicarbs up to 36. No chest pain. No nausea or vomiting. He has started to do some limited ambulation. Lower extremity cellulitis also improving. The patient is currently on oral Augmentin. On 07/22/2019, the patient is essentially stable. He is awaiting a bed MedSurg. He is currently on room air oxygen with a pulse ox of 95%. No electrode disturbances. He is using the BiPAP overnight. Waiting for his equipment to the delivered for him to be discharged home and this will include a hospital bed, oxygen, and a BiPAP machine. Switch this patient oral Augmentin. Lower eczema select is improving. He is also on oral Lasix 40 mg by mouth once a day. Objective - Vital Signs Vital signs: Vital Signs Temp 97.6 F 07/22/19 08:00 Pulse 104 H 07/22/19 08:47 Resp 20 07/22/19 08:00 BP 148/81 07/22/19 08:00 Pulse Ox 95 07/22/19 09:00 Intake & Output 07/21/19 07/22/19 07/22/19 18:59 06:59 18:59 Intake Total 600 350 Output Total 4000 Balance -3400 350 Weight 191.5 kg Intake: Oral 600 350 Output: Urine 4000 Other: Voiding Method Toilet Toilet Toilet Urinal Urinal Urinal # Voids 3 3 1 # Bowel Movements 1 - Exam GENERAL EXAM: Alert, pleasant, obese 39-year-old woman, on 4L of oxygen by nasal cannula with a pulse ox of above 90% HEAD: Normocephalic/atraumatic. EYES: Normal reaction of pupils, equal size. Conjunctiva pink, sclera white. NOSE: Clear with pink turbinates. THROAT: No erythema or exudates. NECK: No masses, no JVD, no thyroid enlargement, no adenopathy. CHEST: No chest wall deformity. Symmetrical expansion. LUNGS: Equal air entry with no crackles, wheeze, rhonchi or dullness. CVS: Regular rate and rhythm, normal S1 and S2, no gallops, no murmurs, no rubs ABDOMEN: Soft, nontender. No hepatosplenomegaly, normal bowel sounds, no guarding or rigidity. EXTREMITIES: No clubbing, lower extremity edema, minimal redness, no drainage, changes of chronic venous stasis and lower extremities no cyanosis, 2+ pulses and upper and lower extremities. MUSCULOSKELETAL: Muscle strength and tone normal. SPINE: No scoliosis or deformity SKIN: No rashes CENTRAL NERVOUS SYSTEM: No focal deficits, tone is normal in all 4 extremities. PSYCHIATRIC: Alert and oriented -3. Appropriate affect. Intact judgment and insight. - Labs CBC & Chem 7: 07/22/19 05:38 07/22/19 05:38 Labs: Abnormal Lab Results - Last 24 Hours (Table) 07/21/19 07/21/19 07/22/19 Range/Units 16:32 20:40 05:38 Hgb (13.0-17.5) gm/dL MCV (80.0-100.0) fL MCH (25.0-35.0) pg MCHC (31.0-37.0) g/dL RDW (11.5-15.5) % Monocytes # (Manual) (0-1.0) k/uL Sodium 136 L (137-145) mmol/L Potassium 5.2 H (3.5-5.1) mmol/L Chloride 93 L (98-107) mmol/L Carbon Dioxide 36 H (22-30) mmol/L Creatinine 0.47 L (0.66-1.25) mg/dL Glucose 110 H (74-99) mg/dL POC Glucose (mg/dL) 140 H 130 H (75-99) mg/dL Calcium 8.2 L (8.4-10.2) mg/dL 07/22/19 07/22/19 07/22/19 Range/Units 05:38 06:46 11:37 Hgb 12.1 L (13.0-17.5) gm/dL MCV 79.5 L (80.0-100.0) fL MCH 23.0 L (25.0-35.0) pg MCHC 28.9 L (31.0-37.0) g/dL RDW 17.2 H (11.5-15.5) % Monocytes # (Manual) 1.43 H (0-1.0) k/uL Sodium (137-145) mmol/L Potassium (3.5-5.1) mmol/L Chloride (98-107) mmol/L Carbon Dioxide (22-30) mmol/L Creatinine (0.66-1.25) mg/dL Glucose (74-99) mg/dL POC Glucose (mg/dL) 118 H 135 H (75-99) mg/dL Calcium (8.4-10.2) mg/dL Assessment and Plan Plan: #1. Acute hypoxemic and hypercapnic respiratory failure related to fluid overload, in a patient with probable sleep apnea syndrome, pickwickian syndrome, and possible underlying chronic lung disease, possibly COPD he had the patient was in acute hypoxic and hypercapnic respiratory failure. In terms of his hypoxemia, his proven the patient is currently on room air oxygen. He was also treated with BiPAP for respiratory support throughout his current hospitalization. The patient improved considerably and currently is on room air oxygen with a pulse ox of 93%. He is still demonstrating exertional oxygen desaturation. He is awaiting his home VPAP automatic unit which was ordered to him through [facility]. On today's evaluation, no change in his condition. The patient on room air oxygen and the patient denies having any significant shortness of breath at rest. No other significant events overnight. Awaiting a [facility] surgical floor. Possible discharge in next 24-48 hours depending on his ability to get all of his equipment including a BiPAP machine and oxygen and a hospital bed. #2. Cellulitis of the lower extremities, improving and the patient had significant improvement in lower extremity edema, and the patient is currently on oral Augmentin #3. Metabolic alkalosis, likely related to excessive diuresis, serum bicarbonate 36 #4. Morbid obesity BMI 56 kg/m #5. Severe DORYS with an AHI of 96.2 and the patient was titrated to a BiPAP pressure of 18/14 cm of water. #6. Benign essential hypertension #7. Diabetes mellitus #8. Previous history of tobacco use, and current history of marijuana use #9. History of left foot proximal phalanx of the fifth toe fracture #10 acute kidney injury, recovered Plan Continue oral Lasix 40 mg by mouth daily. Completed the course of Augmentin. Metoprolol 50 mg by mouth twice a day for rate control as the patient is a mild component of sinus tachycardia. Hospital bed. Home VPAP automatic machine. Home hospital bed. Discharge planning is in progress. We'll continue to follow. Feeling much better. Is awake and alert. No signs of any CO2 narcosis.
[2019-07-22 16:44] LABS: Glucose,Whole Blood 111 mg/dL (75-99)
[2019-07-22 21:22] LABS: Glucose,Whole Blood 113 mg/dL (75-99)
--- NOTE | 2019-07-23 00:09 | PN ---
PROGRESS NOTE DATE OF SERVICE: 07/22/2019 This 39-year-old gentleman who was admitted with acute hypoxic respiratory failure also had multiple medical problems. Patient is being closely monitored. No chest pain. No palpitations. No fever. EXAM: Alert contents x3. Pulse is 101, blood pressure 130/70, respiration 20, temperature 98 degrees, pulse ox 98% on room air. HEENT: Conjunctivae normal. Oral mucosa moist. NECK: No jugular venous distention. No lymph node enlargement. CARDIOVASCULAR: S1, S2. RESPIRATORY: Diminished breath sounds at the bases. Scattered rhonchi and crackles. ABDOMEN: Soft, obese. LEGS: Bilateral leg edema. NERVOUS SYSTEM: No focal deficits. LAB: Sodium 130, potassium 4.2. ASSESSMENT: 1. Acute hypoxic hypercarbic respiratory failure, multifactorial, possibly secondary to congestive heart failure acute exacerbation with acute on chronic diastolic dysfunction, ejection fraction 50-60 percent as well as obesity hypoventilation syndrome, pickwickian syndrome on BiPAP. 2. Change in mental status, acute metabolic encephalopathy multifactorial secondary to above. possible COPD J 44/9 3. Acute respiratory acidosis and subsequent metabolic alkalosis, improving. 4. Renal failure, acute on chronic with significant prerenal acute tubular necrosis component. 5. Bilateral leg cellulitis, acute on chronic. 6. Anemia of chronic disease. 7. Transverse fracture beyond the base of the 5th toe proximal phalanx recently with slight medial displacement, treated with edmundo tape by Orthopedic surgery. 8. Super morbid obesity, body mass index of 56.7. 9. Severe gait dysfunction because of above mentioned multiple medical issues. 10.Diabetes mellitus type 2. 11.Hypertension. 12.Hyperlipidemia. 13.Obstructive sleep apnea. 14.History of cellulitis. 15.Remote history of nicotine dependence. 16.History of THC. RECOMMENDATIONS AND DISCUSSION: I recommend to continue current management, continue symptomatic treatment and continue the current medications. Arrange duoneb nebulizer, home O2, hospital bed and APAP. Otherwise, guarded prognosis. Further recommendations to follow. MMODL / IJN: [id number] / MTDD
[2019-07-23] MEDS: HEPARIN SODIUM,PORCINE 5,000 UNIT/ML 1 ML VIAL SQ SCH ×2 (01:11→07:28)
--- NOTE | 2019-07-23 01:45 | PN ---
PROGRESS NOTE DATE OF SERVICE: 07/22/2019. REASON FOR FOLLOWUP: Bilateral lower extremity cellulitis. INTERVAL HISTORY: The patient is currently afebrile. Patient has been breathing comfortably. Denies any chest pain. Occasional cough. No abdominal pain or pain to the lower extremity. PHYSICAL EXAMINATION: Blood pressure is 131/80 with a pulse of 101, temperature 98.. He is 95% on 4 L nasal cannula. General description is a middle aged male up in the chair in no distress. Respiratory system: Unlabored breathing, decreased intensity with no wheeze. Heart S1, S2. Regular rate and rhythm. Abdomen soft, no tenderness. Bilateral legs some swelling. No redness, no open wound without no drainage. LABS: Hemoglobin is 12.9, white count 8.4, BUN of 17, creatinine 0.47. DIAGNOSTIC IMPRESSION AND PLAN: Patient with bilateral lower extremity cellulitis. Did have diffuse swelling and redness. The patient has shown overall clinical improvement. Currently on oral Augmentin to continue another 5-7 days to finish a course of therapy. Continue supportive care. MMODL / IJN: [id number] /
[2019-07-23] MEDS: CEFEPIME 2 GM in SODIUM CHLORIDE 0.9% 100 ML IVPB SCH (06:48)
[2019-07-23] MEDS: INSULIN ASPART (NovoLOG) 100 UNIT/ML VIAL SQ SCH (07:17)
[2019-07-23] MEDS: NYSTATIN 100,000 UNIT/GM POWD 15 GM TOPICAL SCH (07:27)
[2019-07-23] MEDS: ACETAMINOPHEN TAB 500 MG TAB PO PRN (07:27)
[2019-07-23] MEDS: FUROSEMIDE 40 MG TAB PO SCH (07:28)
[2019-07-23] MEDS: AMOXIC-POT CLAV 875-125MG 1 EACH TAB PO SCH (07:28)
[2019-07-23] MEDS: amLODIPine 5 MG TAB PO SCH (07:28)
[2019-07-23] MEDS: METOPROLOL TARTRATE 50 MG TAB PO SCH (07:28)
[2019-07-23] MEDS ORDERED: PANTOPRAZOLE 40 MG TABLET PO SCH (07:30)
[2019-07-23 07:35] LABS: Glucose,Whole Blood 114 mg/dL (75-99)
[2019-07-23 09:25] LABS: Anisocytosis Slight; Basophils # (A) 0.2 k/uL (0-0.2); Basophils % (A) 3 %; Eosinophils # (A) 0.2 k/uL (0-0.7); Eosinophils % (A) 2 %; HGB 12.4 gm/dL (13.0-17.5); Hypochromasia Marked; Lymphocytes # (A) 1.3 k/uL (1.0-4.8); Lymphocytes % (A) 17 %; MCH 22.2 pg (25.0-35.0); MCHC 29.5 g/dL (31.0-37.0); MCV 75.4 fL (80.0-100.0); Mean Platelet Volume 7.4; Microcytosis Moderate; Monocytes # (A) 0.5 k/uL (0-1.0); Monocytes % (A) 6 %; Neutrophils # (A) 5.2 k/uL (1.3-7.7); Neutrophils % (A) 69 %; Platelet Count 240 k/uL (150-450); RBC 5.58 m/uL (4.30-5.90); RDW 17.8 % (11.5-15.5); WBC 7.6 k/uL (3.8-10.6)
[2019-07-23 11:45] LABS: Glucose,Whole Blood 144 mg/dL (75-99)
--- NOTE | 2019-07-23 12:25 | PN ---
PROGRESS NOTE DATE OF SERVICE: 07/23/2019 REASON FOR FOLLOW UP: Bilateral lower extremity cellulitis. INTERVAL HISTORY: The patient is currently afebrile. The patient has been breathing comfortably. Patient denies having any chest pain. Patient has no abdominal pain or pain to the lower extremity. PHYSICAL EXAMINATION: Blood pressure is 118/79 with a pulse of 110, temperature 98.4, he is 92% on 2 L nasal cannula. General description is a middle-aged male up in the chair in no distress. RESPIRATORY SYSTEM: Unlabored breathing, decreased breath sounds, no wheeze. HEART: S1, S2. Regular rate and rhythm. Legs with swelling, minimal redness, no open wound, or any drainage. LABS: Hemoglobin is 12.4, white count is 10.6. DIAGNOSTIC IMPRESSION AND PLAN: Patient with bilateral lower extremity cellulitis. Patient overall has shown clinical improvement. Currently on oral Augmentin for about a week to continue a course of therapy. Continue supportive care. MMODL / IJN: [id number] /
[2019-07-23 13:25] VITALS: BMI 54.2
--- NOTE | 2019-07-23 13:30 | P.PN ---
Subjective Progress Note Date: 07/23/19 Principal diagnosis: Acute hypoxemic and hypercapnic respiratory failure related to fluid overload, pulmonary vascular congestion, suspected underlying obstructive sleep apnea, and COPD On 07/17/2019 patient seen in follow-up in intensive care unit, he remains on BiPAP, pressures of 2004 6, and FiO2 of 35%, he is arousable, she is answering simple questions. He is appropriate, he denies any acute distress. No new chest x-ray today, yesterday's chest x-ray has been reviewed, showing similar- appearing pulmonary vascular congestion and enlarged cardio missed on [place] of cardiogenic or cardiogenic fluid overload. Patient remains on Lasix drip, his been diuresing massively, he is produced 12 L of urine last 24 hours, and he is in -9638 and the fluid balance over the last 24 hours. Has been reviewed, showing white blood cell count of 12.1, hemoglobin 12.4, sodium of 138, potassium is 4.0, chloride is 81, CO2 was 51, BUN of 11 and creatinine 0.57. Lab work is showing significant metabolic alkalosis, likely related to extensive diuresis. Patient is in -8.7 kg over the last 24 hours. Medical coverage is with cefepime and vancomycin for lower extremity cellulitis, fever or chills, blood culture showed no growth. Lower extremities are with minimal redness, no drainage. On 07/18/2019 patient seen in follow-up. On BiPAP support, but his mentation has improved, he is answering questions, he is alert and oriented 3, his been tolerating nasal cannula trials, usually at 15 L, and his maintaining a pulse ox of 90-91%. Continues to diurese, he is maintaining negative fluid balance, he is in -4890 mL over the last 24 hours, fluid volume status is improving, lower extremity edema is improving, significant erythema or warmth to the lower extremities, patient is on cefepime for antibiotic coverage, ID service is following and vancomycin has been discontinued. Lung sounds reveal a few rhonchi, no significant wheezes, patient has been given several doses of Diamox, and today's blood work has been reviewed showing improvement in patient's metabolic alkalosis, with a CO2 of 32, down from 51 on yesterday's labs, serum sodium is 135, potassium is 4.6, chloride is 95, blood gas was obtained this morning, on BiPAP support, and showed a pO2 of 80, pCO2 of 7 due to, and pH of 7.27, improvement from yesterday's blood gas. no Fever or chills, hemodynamic ally stable. On 07/23/2019 patient seen in follow-up on medical surgical floor. He is awake and alert, in no acute distress, remains on supplemental oxygen at 2 L, and his pulse ox is 95%. He states his breathing has much improved. He remains on oral diuretics at 40 mg daily, nebulized bronchodilators, and he is completing a course of oral Augmentin. Urine and blood cultures are negative, no cough or congestion. Maintaining a negative fluid balance, lower extremity edema is improving although he still has residual edema. Complaints of chest pain, no lethargy, patient has been wearing the BiPAP unit at night. Patient is going home today, and his home V-Pap unit has already been delivered to his house, as well as his oxygen tank and his hospital bed is supposed to be delivered someti me this afternoon. Objective - Vital Signs Vital signs: Vital Signs Temp 98.4 F 07/23/19 05:20 Pulse 110 H 07/23/19 05:20 Resp 22 07/23/19 05:20 BP 118/79 07/23/19 05:20 Pulse Ox 95 07/23/19 07:11 Intake & Output 07/22/19 07/23/19 07/23/19 18:59 06:59 18:59 Intake Total 540 Output Total 1150 1350 600 Balance -1150 -810 -600 Weight 191.6 kg Intake: Oral 540 Output: Urine 1150 1350 600 Other: Voiding Method Toilet Urinal Urinal Urinal # Voids 2 2 # Bowel Movements 1 1 - Exam GENERAL EXAM: Alert, pleasant, obese 39-year-old white male, on 2 l/min pulse ox of 95% comfortable in no apparent distress. HEAD: Normocephalic/atraumatic. EYES: Normal reaction of pupils, equal size. Conjunctiva pink, sclera white. NOSE: Clear with pink turbinates. THROAT: No erythema or exudates. NECK: No masses, no JVD, no thyroid enlargement, no adenopathy. CHEST: No chest wall deformity. Symmetrical expansion. LUNGS: Equal air entry with no crackles, wheeze, rhonchi or dullness. CVS: Regular rate and rhythm, normal S1 and S2, no gallops, no murmurs, no rubs ABDOMEN: Soft, nontender. No hepatosplenomegaly, normal bowel sounds, no guarding or rigidity. EXTREMITIES: No clubbing, lower extremity edema, minimal redness, no drainage, changes of chronic venous stasis and lower extremities no cyanosis, 2+ pulses and upper and lower extremities. MUSCULOSKELETAL: Muscle strength and tone normal. SPINE: No scoliosis or deformity SKIN: No rashes CENTRAL NERVOUS SYSTEM: Alert and oriented -3. No focal deficits, tone is n ormal in all 4 extremities. PSYCHIATRIC: Alert and oriented -3. Appropriate affect. Intact judgment and insight. - Labs CBC & Chem 7: 07/23/19 09:00 07/22/19 05:38 Labs: Abnormal Lab Results - Last 24 Hours (Table) 07/22/19 07/22/19 07/23/19 Range/Units 16:42 21:21 07:16 Hgb (13.0-17.5) gm/dL MCV (80.0-100.0) fL MCH (25.0-35.0) pg MCHC (31.0-37.0) g/dL RDW (11.5-15.5) % POC Glucose (mg/dL) 111 H 113 H 114 H (75-99) mg/dL 07/23/19 07/23/19 Range/Units 09:00 11:43 Hgb 12.4 L (13.0-17.5) gm/dL MCV 75.4 L (80.0-100.0) fL MCH 22.2 L (25.0-35.0) pg MCHC 29.5 L (31.0-37.0) g/dL RDW 17.8 H (11.5-15.5) % POC Glucose (mg/dL) 144 H (75-99) mg/dL Assessment and Plan Plan: Assessment: #1. Acute hypoxemic and hypercapnic respiratory failure related to fluid overload, in a patient with probable sleep apnea syndrome, pickwickian syndrome, and possible underlying chronic lung disease, possibly COPD he had the patient was in acute hypoxic and hypercapnic respiratory failure. In terms of his hypoxemia, his proven the patient is currently on room air oxygen. He was also treated with BiPAP for respiratory support throughout his current hospitalization. The patient improved considerably and currently is on room air oxygen with a pulse ox of 93%. He is still demonstrating exertional oxygen desaturation. He is awaiting his home VPAP automatic unit which was ordered to him through [facility]. On today's evaluation, no change in his condition. The patient on room air oxygen and the patient denies having any significant shortness of breath at rest. No other significant events overnight. Awaiting a [facility] surgical floor. Possible discharge in next 24-48 hours depending on his a bility to get all of his equipment including a BiPAP machine and oxygen and a hospital bed. #2. Cellulitis of the lower extremities, improving and the patient had significant improvement in lower extremity edema, and the patient is currently on oral Augmentin #3. Metabolic alkalosis, likely related to excessive diuresis, serum bicarbonate 36 #4. Morbid obesity BMI 56 kg/m #5. Severe DORYS with an AHI of 96.2 and the patient was titrated to a BiPAP pressure of 18/14 cm of water. #6. Benign essential hypertension #7. Diabetes mellitus #8. Previous history of tobacco use, and current history of marijuana use #9. History of left foot proximal phalanx of the fifth toe fracture #10 acute kidney injury, recovered Plan: Patient is stable from pulmonary perspective, FiO2 is down to 2 L, patient's V- pap unit and oxygen tank has been delivered to his house, hospital bed will be delivered sometime this afternoon, clinically patient is stable, no complaints of 40 shortness of breath or chest pain, continue on oral dose of Lasix 40 mg daily, complete a course of Augmentin. Stable for discharge today. Patient is awake and alert, no lethargy. He will need follow-up in the office in 7-[address] Felipe. I performed a history & physical examination of the patient and discussed their management with my nurse practitioner, Johnna Queen. I reviewed the nurse practitioner's note and agree with the documented findings and plan of care. Lung sounds are positive for diminished breath sounds. The findings and the impression was discussed with the patient. I attest to the documentation by the nurse practitioner. Time with Patient: Less than 30
[2019-07-23 13:34] VITALS: BP 124/75; PULSE 115; RESP 18; TEMP 98.1
--- NOTE | 2019-07-23 22:43 | DS ---
DISCHARGE SUMMARY DATE OF SERVICE: 07/23/2019. FINAL DIAGNOSES: 1. Acute hypoxic hypercarbic respiratory failure, multifactorial, possibly secondary to congestive heart failure, acute exacerbation, with acute on chronic diastolic dysfunction, ejection fraction 50% to 60%, as well as obesity hypoventilation syndrome, pickwickian syndrome, on BiPAP. 2. Change in mental status, acute metabolic encephalopathy, multifactorial, secondary to above. 3. Possible chronic obstructive pulmonary disease j 44.9. 4. Acute respiratory acidosis and subsequent metabolic alkalosis, improving. 5. Renal failure, acute on chronic, with significant prerenal acute tubular necrosis component. 6. Bilateral leg cellulitis, acute on chronic. 7. Anemia of chronic disease. 8. Transverse fracture beyond the base of the fifth toe proximal phalanx recently with slight medial displacement, treated with edmundo tape by Orthopedic Surgery. 9. Super morbid obesity; body mass index of 56.7. 10.Severe gait dysfunction because of above-mentioned multiple medical issues. 11.Diabetes mellitus, type 2. 12.Hypertension. 13.Hyperlipidemia. 14.Obstructive sleep apnea. 15.History of cellulitis. 16.Remote history of nicotine dependence. 17.History of tetrahydrocannabinol. DISCHARGE DISPOSITION: The patient will be discharged in stable condition with guarded prognosis. Total time taken 35 minutes. HISTORY OF PRESENT ILLNESS: This 39-year-old gentleman with a past medical history of problems multiple medical problems was admitted with acute hypoxic respiratory failure. The patient was treated symptomatically. Patient also had pickwickian syndrome and was treated with BiPAP. Patient has multiple complex other medical issues, as listed above. Patient was treated with antibiotics, bronchodilators, steroids. Patient improved significantly. He was seen by Cardiology and Pulmonology during the hospitalization. PT/OT was consulted. At this time will be patient discharged home in stable condition with guarded prognosis. Recommend the patient to follow closely with Dr. Huffman as well as multiple consultants. The importance of compliance was stressed. The patient also was recommended to obtain bariatric surgery consultation per Dr. Huffman. On exam, vitals are stable. CARDIOVASCULAR SYSTEM: S1, S2 muffled. RESPIRATORY SYSTEM: A few scattered rhonchi. LEGS: Bilateral leg edema. DISCHARGE ADVICE AND MEDICATIONS: 1. Diet is cardiac. 2. Activity limited until followup. 3. Follow up with Dr. Huffman in 2-3 days. 4. Follow up with Dr. Felipe as recommended. 5. Augmentin 875 mg one p.o. b.i.d. for 4 days. 6. DuoNeb q.i.d. and p.r.n. 7. K-Dur 20 mEq p.o. daily. 8. Lasix 40 mg p.o. daily. 9. Lopressor 50 mg p.o. b.i.d. 10.Multivitamins 1 p.o. daily. 11.Mycostatin 1 application b.i.d. for 5 days. 12.Norvasc 5 mg p.o. daily. 13.Tylenol 500 mg q.6 p.r.n. Once again, the patient will be discharged in stable condition with guarded prognosis. MMODL / IJN: [id number] / MTDD
--- NOTE | 2019-07-25 07:35 | CDI ---
Documentation Clarification Form Date: 07/25/2019 From: Kaitlin Corado Phone: If questions call Earline Jamison @ [phone], Hours-8:30 am & 5 pm M- F Admit Date: 07/14/2019 4:12:00 PM Patient Name: Ben Pérez Visit Number: [id number] Discharge Date: 07/23/2019 1:37:00 PM ATTENTION: The Clinical Documentation Specialists (CDI) and [facility] Coding Staff appreciate your assistance in clarifying documentation. Please respond to the clarification below the line at the bottom and electronically sign. The CDI & [facility] Coding staff will review the response and follow-up if needed. Please note: Queries are made part of the Legal Health Record. If you have any questions, please contact the author of this message via ITS. Dr. Eduardo Gao Patient was admitted with renal failure, acute on chronic per your PNs on 07/19, 07/20, 07/21 & 07/22. History/Risk Factors: DM, HTN/CHF No baseline labs documented BUN: 13, 12, 9, 11, 15, 47, 60, 59, 26, 17 CR: .60, .65, .56, .57, .70, 1.96, 2.45, 1.28, .73, .47 GFR: >90, >90, >90, >90, >90, 42, 32, 70, >90, >90 Treatment: IVF In order to capture the severity of condition, please clarify if the condition signifies: CKD Stage 1 (GFR > 90) CKD Stage 2 (GFR 60-89) CKD Stage 3 (GFR 30-59) CKD Stage 4 (GFR 15-29) CKD Stage 5 (GFR <15) ESRD Other, please specify Unable to determine CKD Stage 1 (GFR > 90) MTDD
== END 2019-07-23 13:37 | disposition home health service (06) | DRG 189 ==
LOC: EC 13:02 → 3SCARD 16:12 → 2SICU 07-15 14:33 → 4MS4W 07-22 22:25
PROVIDERS: ADMIT Hospitalist; ATTEND Hospitalist
PROC: 5A09557 Assistance with Respiratory Ventilation, Greater than 96 Consecutive Hours, Continuous Positive Airway Pressure (ICD-10-PCS; principal; 2019-07-15)
DX: J96.22 Acute and chronic respiratory failure with hypercapnia (principal); I50.33 Acute on chronic diastolic (congestive) heart failure; G93.41 Metabolic encephalopathy; N17.0 Acute kidney failure with tubular necrosis; E66.2 Morbid (severe) obesity with alveolar hypoventilation; L03.115 Cellulitis of right lower limb; L03.116 Cellulitis of left lower limb; Z68.43 Body mass index [BMI] 50.0-59.9, adult; E87.4 Mixed disorder of acid-base balance; I13.0 Hypertensive heart and chronic kidney disease with heart failure and stage 1 through stage 4 chronic kidney disease, or unspecified chronic kidney disease; J96.21 Acute and chronic respiratory failure with hypoxia; E11.22 Type 2 diabetes mellitus with diabetic chronic kidney disease; E11.40 Type 2 diabetes mellitus with diabetic neuropathy, unspecified; J44.9 Chronic obstructive pulmonary disease, unspecified; N18.1 Chronic kidney disease, stage 1; G47.33 Obstructive sleep apnea (adult) (pediatric); S92.512A Displaced fracture of proximal phalanx of left lesser toe(s), initial encounter for closed fracture; I87.2 Venous insufficiency (chronic) (peripheral); E78.5 Hyperlipidemia, unspecified; D63.8 Anemia in other chronic diseases classified elsewhere; R26.9 Unspecified abnormalities of gait and mobility; B35.3 Tinea pedis; I25.2 Old myocardial infarction; L30.9 Dermatitis, unspecified; T50.2X5A Adverse effect of carbonic-anhydrase inhibitors, benzothiadiazides and other diuretics, initial encounter; Z87.891 Personal history of nicotine dependence; Z71.3 Dietary counseling and surveillance; Z99.89 Dependence on other enabling machines and devices; W01.0XXA Fall on same level from slipping, tripping and stumbling without subsequent striking against object, initial encounter; Z88.8 Allergy status to other drugs, medicaments and biological substances; Y92.009 Unspecified place in unspecified non-institutional (private) residence as the place of occurrence of the external cause; Z81.8 Family history of other mental and behavioral disorders
CPT/HCPCS: 36415; 36600; 71045; 71046; 80048; 80053; 80202; 81001; 82805; 83880; 84132; 84484; 85025; 85027; 85610; 85652; 85730; 86140; 87040; 87086; 93005; 93306; 94640; 94660; 94760; 96365; 99285